=== PATIENT | female | born 1985 | race Caucasian/White ===

== ENCOUNTER → 2020-05-11 | Outpatient (CLI) | payer SELFPAY ==
--- NOTE | 2020-05-11 13:03 | XR ---
EXAMINATION TYPE: XR abdomen 2V DATE OF EXAM: 05/11/2020 COMPARISON: NONE HISTORY: Abdominal pain TECHNIQUE: One view abdominal series FINDINGS: The osseous structures are intact. The bowel gas pattern is nonspecific. Lung bases are clear. Arth ropathy of the hips with severe changes seen on the left. IMPRESSION: 1. Nonspecific abdomen.
== END | disposition home or self-care (01) ==
LOC: RADXRMAIN 12:40
PROVIDERS: ATTEND Family Medicine
DX: R10.9 Unspecified abdominal pain (principal); R19.4 Change in bowel habit
CPT/HCPCS: 74019

== ENCOUNTER → 2021-09-28 | Outpatient (CLI) | payer BC ==
[2021-09-28 15:26] VITALS: BP 155/94; PULSE 102; RESP 16; TEMP 97.8; BMI 53.7
--- NOTE | 2021-09-28 15:45 | P.HPBAR ---
Bariatric H&P - History & Physicial H&P Date: 09/28/21 History & Physicial: Visit/CC: Initial Visit Patient initial contact: Initial weight: 153.314 kg Initial weight in pounds: 338.00 Height: 5 ft 6.5 in Initial BMI: 53.7 Last weight: Current weight: 153.314 kg Current weight in pounds: 338.00 Current BMI: 53.7 [place] body weight (based on NIH guidelines): 60.101 kg Excess body weight loss: 0.0% The patient is a 36 year-old F who presents for Bariatric Assessment. Patient demonstrates him in consultation for weight loss. She look into the sleeve versus the gastric bypass. She reports underlying gastroparesis and reflux disease. She reports lower back pain. She also reports she will need a hip replacement at 36. She reports right hip pain and right knee pain as well. She had lost over 60 pounds with [employer] in 2019 and has regained all her weight. She stopped smoking. She is involving medical supervised weight loss. She resumed weight watchers. Recommend upper endoscopy further assessment of reflux disease. She doesn't recall bladder. She denies any family history of gallbladder disease. No family history of DVT stomach cancer esophageal cancer. Past Medical History History of Any Multi-Drug Resistant Organisms: None Reported Smoking Status: Former smoker Surgical - Exam Vital Signs Temp Pulse Resp BP 97.8 F 102 H 16 155/94 09/28/21 15:21 09/28/21 15:21 09/28/21 15:21 09/28/21 15:21 Bariatric Checklist Checklist: Plan: Checklist: EGD: 1. Hiatal hernia: 2. H. Pylori: HgbA1c: Vitamin D: Smoking: Primary care physician referral: Torie Psychiatry clearance: Cardiology clearance: Sleep study: Diet journal: VTE risk score: VTE risk level: Rehab needs at discharge:
[2021-09-28 23:03] LABS: HCT 42.9 % (37.2-46.3); HGB 13.6 g/dL (12.0-15.0); MCH 27.1 pg (27.0-32.0); MCHC 31.7 g/dL (32.0-37.0); MCV 85.5 fL (80.0-97.0); NRBC Per 100 WBC 0 /100 WBCS (0.0-0.0); Platelet Count 211 X 10*3/uL (140-440); RBC 5.02 X 10*6/uL (4.10-5.20); RDW 13.8 % (11.5-14.5); WBC 10.33 X 10*3/uL (4.50-10.00)
[2021-09-28 23:19] LABS: Chol/HDL Ratio 3.11 Ratio; LDL Cholesterol,Calculated 97.6 mg/dL (0.0-131.0); Prealbumin 23.9 mg/dL (18.0-42.0)
[2021-09-28 23:46] LABS: INR 0.94 (0.90-1.11); Partial Thromboplastin Time 29.4 sec (23.5-31.0); Prothrombin Time 10.4 sec (9.9-11.9)
[2021-09-29 01:32] LABS: % Iron Saturation 14.83 (12.00-45.00); ALT 11 U/L (8-44); AST 13 U/L (13-35); African American GFR (CKD) 95.3 (60.0-200.0); Albumin 4.3 g/dL (3.8-4.9); Albumin/Globulin Ratio 1.34 (1.60-3.17); Alkaline Phosphatase 67 U/L (41-126); BUN/Creat Ratio 17.78 Ratio (12.00-20.00); Calcium 9.2 mg/dL (8.7-10.3); Chloride 100 mmol/L (96-109); Ferritin 87.8 ng/mL (10.0-291.0); Globulin 3.2 g/dL (1.6-3.3); Glucose 89 mg/dL (70-110); Iron 65 ug/dL (50-170); Magnesium 2.1 mg/dL (1.5-2.4); Non-African American GFR(CKD) 82.3 (60.0-200.0); Phosphorus 3.5 mg/dL (2.4-5.1); Sodium 137 mmol/L (135-145); Total Iron Binding Capacity 440 ug/dL (228-460); Total Protein 7.5 g/dL (6.2-8.2)
[2021-09-29 11:56] LABS: Zinc, Serum 48 ug/dL (60-130)
[2021-09-30 06:56] LABS: Vitamin A 67 ug/dL (38-106)
[2021-10-01 14:22] LABS: Selenium 123 mcg/L (63-160)
[2021-10-01 18:00] LABS: Anabasine Urine <2.0 ng/mL (<2.0)
== END | disposition home or self-care (01) ==
LOC: BARWHC3 15:04
PROVIDERS: ATTEND Surgery Plastic and Reconstructive Surgery
DX: E66.01 Morbid (severe) obesity due to excess calories (principal); D50.8 Other iron deficiency anemias; D50.9 Iron deficiency anemia, unspecified; K90.89 Other intestinal malabsorption; K90.9 Intestinal malabsorption, unspecified; E55.9 Vitamin D deficiency, unspecified; K74.1 Hepatic sclerosis; N19 Unspecified kidney failure; T56.894A Toxic effect of other metals, undetermined, initial encounter; K50.90 Crohn's disease, unspecified, without complications; Z71.51 Drug abuse counseling and surveillance of drug abuser; Z68.43 Body mass index [BMI] 50.0-59.9, adult
CPT/HCPCS: 84255; 84134; 84425; 80061; 80053; 82607; 82728; 82525; 82746; 83540; 83550; 83735; 84100; 84443; 84590; 84630; 85027; 85610; 85730; 82306; 83970; 83036; 80307; 99203; 93005; G0482; 80323

== ENCOUNTER 2021-10-24 09:17 | Day surgery (SDC) | payer BC ==
[2021-10-19 13:56] VITALS: BMI 56.2
--- NOTE | 2021-10-24 07:56 | P.GSHP ---
History of Present Illness H&P Date: 10/24/21 CHIEF COMPLAINT: GERD HISTORY OF PRESENT ILLNESS: The patient is a 36-year-old female who presents reports gastroesophageal reflux disease. Upper endoscopy was offered for further evaluation and management. PAST MEDICAL HISTORY: Please see list. PAST SURGICAL HISTORY: Please see list. MEDICATIONS: Please see list. ALLERGIES: Please see list. SOCIAL HISTORY: No illicit drug use FAMILY HISTORY: No reports of Crohn disease or ulcerative colitis. REVIEW OF ORGAN SYSTEMS: CONSTITUTIONAL: No reports of fevers or chills. GI: Denies any blood in stools or constipation. PHYSICAL EXAM: VITAL SIGNS: Stable GENERAL: Well-developed and pleasant in no acute distress. HEENT: No scleral icterus. Extraocular movements grossly intact. Moist buccal mucosa. NECK: Supple without lymphadenopathy. CHEST: Unlabored respirations. Equal bilateral excursions. CARDIOVASCULAR: Regular rate and rhythm. Distal 2+ pulses. ABDOMEN: Soft, nondistended. MUSCULOSKELETAL: No clubbing, cyanosis, or edema. ASSESSMENT: 1. Gastroesophageal reflux disease PLAN: 1. Recommend proceeding with an upper endoscopy Past Medical History Past Medical History: Osteoarthritis (OA), Sleep Apnea/CPAP/BIPAP Additional Past Medical History / Comment(s): bilateral hip osteoarthritis bilateral knee osteoarthritis History of Any Multi-Drug Resistant Organisms: None Reported Past Surgical History: Section Past Anesthesia/Blood Transfusion Reactions: No Reported Reaction Past Psychological History: Depression Smoking Status: Former smoker Past Alcohol Use History: None Reported Additional Past Alcohol Use History / Comment(s): HASN'T SMOKED SINCE 10/09/21 Past Drug Use History: None Reported Medications and Allergies Home Medications Medication Instructions Recorded Confirmed Type Desvenlafaxine Succinate [Pristiq] 50 mg PO HS 09/30/21 10/19/21 History lamoTRIgine [LaMICtal Xr] 50 mg PO HS 09/30/21 10/19/21 History Nf- Control 1 tab PO DAILY 10/19/21 10/19/21 History hydroCHLOROthiazide 25 mg PO DAILY 10/19/21 10/19/21 History Allergies Allergy/AdvReac Type Severity Reaction Status Date / Time No Known Allergies Allergy Verified 09/30/21 11:26
[~2021-10-24 09:17] MED LIST: LACTATED RINGERS 1,000 ML IV SCH; LIDOCAINE 1% (10MG/ML) FOR IV START INTRADERMA PRN
[2021-10-24 09:52] VITALS: TEMP 96.7
[2021-10-24] MEDS ORDERED: PROPOFOL 10 MG/ML 20 ML VIAL IV ONE (10:11)
[2021-10-24] MEDS ORDERED: LIDOCAINE 1% INJ 10MG/ML (20 ML MDV) ONE (10:11)
[2021-10-24 10:34] VITALS: RESP 16
--- NOTE | 2021-10-24 10:34 | P.PCN ---
Date of Procedure: 10/24/21 Description of Procedure: PREOPERATIVE DIAGNOSIS: Gastroesophageal reflux disease. Morbid obesity. POSTOPERATIVE DIAGNOSIS: Gastroesophageal reflux disease. Morbid obesity. Gastritis. Duodenitis OPERATION: Esophagogastroduodenoscopy with biopsies along antrum and duodenum SURGEON: Taya Sharp MD ANESTHESIA: MAC. INDICATIONS: The patient is a 36-year-old female who presents with reflux disease. Benefits and risks of the procedure were described. Informed consent was obtained. DESCRIPTION: The patient was brought into the endoscopy suite and laid in the left lateral decubitus position. An Olympus gastroscope was passed along the posterior oropharynx down to the distal esophagus where the squamocolumnar junction was encountered at 38 cm from the incisors. The stomach was entered and no bile reflux was found. Additional findings are listed below. Biopsies with cold forceps were obtained of the antrum. The first through third portion of the duodenum was examined. Retroflexion of the scope confirmed Hill grade 2 lower esophageal valve. The squamocolumnar junction demonstrated LA grade A erosive esophagitis. The stomach was desufflated. The patient tolerated the procedure well. FINDINGS: Squamocolumnar junction 38 cm from the incisors. Diaphragmatic hiatus at 38 cm. Hill grade 2 lower esophageal valve. LA grade A erosive esophagitis. Active duodenitis. Chronic gastritis RECOMMENDATIONS: Upper endoscopy as needed. Plan - Discharge Summary Discharge Rx Participant: No New Discharge Prescriptions: Continue lamoTRIgine [LaMICtal Xr] 50 mg PO HS hydroCHLOROthiazide 25 mg PO DAILY Nf- Control 1 tab PO DAILY Desvenlafaxine Succinate [Pristiq] 50 mg PO HS Discharge Medication List Desvenlafaxine Succinate [Pristiq] 50 mg PO HS 09/30/21 [History] lamoTRIgine [LaMICtal Xr] 50 mg PO HS 09/30/21 [History] Nf- Control 1 tab PO DAILY 10/19/21 [History] hydroCHLOROthiazide 25 mg PO DAILY 10/19/21 [History] Follow up [facility]ment(s[facility] [facility] [place] [place] [place] Patient Instructions/Handouts: Duodenitis (DC), Gastritis (DC), Diet for Stomach Ulcers and Gastritis (ED) Discharge Disposition: HOME SELF-CARE
[2021-10-24 10:55] VITALS: BP 114/74; PULSE 92
== END 2021-10-24 10:58 | disposition home or self-care (01) ==
LOC: ORWHC2ENDO 09:17
PROVIDERS: ATTEND Surgery Plastic and Reconstructive Surgery
DX: K31.A0 Gastric intestinal metaplasia, unspecified (principal); K31.9 Disease of stomach and duodenum, unspecified; K21.9 Gastro-esophageal reflux disease without esophagitis; R59.9 Enlarged lymph nodes, unspecified; M19.90 Unspecified osteoarthritis, unspecified site; F32.A Depression, unspecified; I10 Essential (primary) hypertension; Z87.891 Personal history of nicotine dependence; M16.0 Bilateral primary osteoarthritis of hip; M17.0 Bilateral primary osteoarthritis of knee; Z79.899 Other long term (current) drug therapy; G47.33 Obstructive sleep apnea (adult) (pediatric); Z98.891 History of uterine scar from previous surgery
CPT/HCPCS: 81025; 88305; 43239; J2001; J2704

== ENCOUNTER → 2021-11-14 | Outpatient (CLI) | payer BC ==
[2021-11-14 12:39] VITALS: BMI 55.2
[2021-11-17 07:10] LABS: Anabasine Urine <2.0 ng/mL (<2.0)
== END | disposition home or self-care (01) ==
LOC: BARWHC3 08:51
PROVIDERS: ATTEND Surgery Plastic and Reconstructive Surgery
DX: E66.01 Morbid (severe) obesity due to excess calories (principal); Z71.3 Dietary counseling and surveillance; Z71.51 Drug abuse counseling and surveillance of drug abuser
CPT/HCPCS: 80323; 97804

== ENCOUNTER → 2021-12-12 | Outpatient (CLI) | payer BC | END | disposition home or self-care (01) | LOC: LABPAT 10:05 | PROVIDERS: ATTEND Surgery Plastic and Reconstructive Surgery | DX: Z53.9 Procedure and treatment not carried out, unspecified reason (principal) ==

== ENCOUNTER → 2021-12-12 | Outpatient (CLI) | payer BC ==
[2021-12-12 11:19] LABS: Prothrombin Time 10.6 sec (9.0-12.0)
[2021-12-12 14:41] LABS: Basophils # (A) 0.06 X 10*3/uL (0.00-0.10); Basophils % (A) 0.7 %; Eosinophils # (A) 0.15 X 10*3/uL (0.04-0.35); Eosinophils % (A) 1.7 %; HCT 41.1 % (37.2-46.3); HGB 13.2 g/dL (12.0-15.0); Immature Grans, Automated 0.2 %; Lymphocytes # (A) 2.09 X 10*3/uL (0.90-5.00); MCH 26.4 pg (27.0-32.0); MCHC 32.1 g/dL (32.0-37.0); MCV 82.2 fL (80.0-97.0); Mean Platelet Volume 9.5 fL (9.5-12.2); Monocytes # (A) 0.63 X 10*3/uL (0.20-1.00); Monocytes % (A) 7.2 %; NRBC Per 100 WBC 0 /100 WBCS (0.0-0.0); Neutrophils # (A) 5.76 X 10*3/uL (1.80-7.70); Neutrophils % (A) 66.2 %; Platelet Count 159 X 10*3/uL (140-440); RDW 13.3 % (11.5-14.5); WBC 8.71 X 10*3/uL (4.50-10.00)
[2021-12-12 14:58] LABS: % Iron Saturation 18.97 (12.00-45.00); ALT 33 U/L (8-44); AST 33 U/L (13-35); African American GFR (CKD) 122.2 (60.0-200.0); Albumin 4.4 g/dL (3.8-4.9); Albumin/Globulin Ratio 1.42 (1.60-3.17); Alkaline Phosphatase 87 U/L (41-126); BUN/Creat Ratio 24.15 Ratio (12.00-20.00); Blood Urea Nitrogen 17.7 mg/dL (9.0-27.0); Calcium 9.3 mg/dL (8.7-10.3); Carbon Dioxide 23.2 mmol/L (20.0-27.5); Chloride 102 mmol/L (96-109); Globulin 3.1 g/dL (1.6-3.3); Glucose 102 mg/dL (70-110); Iron 69 ug/dL (50-170); Magnesium 2.1 mg/dL (1.5-2.4); Non-African American GFR(CKD) 105.4 (60.0-200.0); Phosphorus 3.7 mg/dL (2.4-5.1); Sodium 137 mmol/L (135-145); Total Iron Binding Capacity 363 ug/dL (228-460); Total Protein 7.4 g/dL (6.2-8.2)
[2021-12-12 15:26] LABS: Chol/HDL Ratio 4.03 Ratio; LDL Cholesterol,Calculated 111.8 mg/dL (0.0-131.0); Prealbumin 20.2 mg/dL (18.0-42.0)
[2021-12-13 12:38] LABS: Zinc, Serum 72 ug/dL (60-130)
[2021-12-14 09:31] LABS: Vitamin A 42 ug/dL (38-106)
== END | disposition home or self-care (01) ==
LOC: LABWHC1 09:25
PROVIDERS: ATTEND Surgery Plastic and Reconstructive Surgery
DX: E89.1 Postprocedural hypoinsulinemia (principal); D50.8 Other iron deficiency anemias; K90.89 Other intestinal malabsorption; E55.9 Vitamin D deficiency, unspecified; K74.1 Hepatic sclerosis; N19 Unspecified kidney failure; T56.894A Toxic effect of other metals, undetermined, initial encounter; K50.90 Crohn's disease, unspecified, without complications
CPT/HCPCS: 36415; 80053; 80061; 82306; 82525; 82607; 82728; 82746; 83036; 83540; 83550; 83735; 83970; 84100; 84134; 84255; 84425; 84443; 84590; 84630; 85025; 85610; 85730

== ENCOUNTER → 2021-12-29 | Outpatient (CLI) | payer BC ==
[~2021-12-29] MED LIST changes: -LACTATED RINGERS 1,000 ML IV SCH; -LIDOCAINE 1% (10MG/ML) FOR IV START INTRADERMA PRN; +SODIUM CHLORIDE 0.9% 2,000 ML IV NR; +SODIUM CHLORIDE 0.9% 500 ML 500 ML in EMPTY BAG 1 BAG IV PRN
== END | disposition home or self-care (01) ==
LOC: PROCWHC3 15:51
PROVIDERS: ATTEND Surgery Plastic and Reconstructive Surgery
DX: E86.0 Dehydration (principal)
CPT/HCPCS: 96360; 96361

== ENCOUNTER → 2022-01-11 | Outpatient (CLI) | payer BC ==
[2022-01-11] MEDS: SODIUM CHLORIDE 0.9% 1,000 ML IV SCH ×2 (14:25→15:25)
[2022-01-11 14:27] VITALS: RESP 16; BMI 49.4
[2022-01-11 14:41] VITALS: BP 107/75; PULSE 85; TEMP 97.8
--- NOTE | 2022-01-11 16:17 | P.BASOAP ---
Subjective Progress Note Date: 01/11/22 She had GERD from not taking medications of omeprazole. She had large BM. She is getting fluids. She can tolerate egss, scrambled and did crab meat. She forgot her Omeprazole. She is getting fluids. Recommend EGD if dysphagia. She had dumping syndrome with sugar beverage. Objective - Vital Signs Vital signs: Vital Signs Temp 97.8 F 01/11/22 14:34 Pulse 85 01/11/22 14:34 Resp 16 01/11/22 14:34 BP 107/75 01/11/22 14:34 Pulse Ox 97 01/11/22 14:34 FiO2 Intake & Output 01/10/22 01/11/22 01/11/22 18:59 06:59 18:59 Weight 141.067 kg Assessment/Plan Plan: Date: 01/11/22 Initial Weight: 153.314 kg Initial BMI: 53.7 Current Weight: 141.067 kg Current BMI: 49.4 Type of Surgery: Cha-en-Y Gastric Bypass Total Volume in Band: Previous Volume: Volume Removed: Volume Added: Band Size:
== END | disposition home or self-care (01) ==
LOC: BARWHC3 13:48
PROVIDERS: ATTEND Surgery Plastic and Reconstructive Surgery
DX: E86.0 Dehydration (principal)
CPT/HCPCS: 96360; 96361; 99211

== ENCOUNTER → 2022-01-16 | Outpatient (CLI) | payer BC ==
[2022-01-16] MEDS: SODIUM CHLORIDE 0.9% 1,000 ML IV SCH ×2 (12:40→13:43)
[2022-01-16 12:58] VITALS: BP 133/94; PULSE 99; RESP 16; TEMP 98.3
--- NOTE | 2022-01-16 14:00 | P.PN ---
Subjective Progress Note Date: 01/16/22 Patient seen and evaluated. Reports new left lower quadrant abdominal pain. She is 3 weeks out from status post gastric bypass. She reports intractable nausea and vomiting. Unable to tolerate liquids. Recommend esophagram. Due to new onset left lower quadrant abdominal pain risk for intra-abdominal infection present. She denies fevers. Recommend CT of the abdomen and pelvis. May need upper endoscopy with dilation pending results of esophagram. Recommend IV fluids for inadequate oral intake of fluids Objective - Vital Signs Vital signs: Vital Signs Temp 98.3 F 01/16/22 12:47 Pulse 99 01/16/22 12:47 Resp 16 01/16/22 12:47 BP 133/94 01/16/22 12:47 Pulse Ox FiO2 Intake & Output 01/15/22 01/16/22 01/16/22 18:59 06:59 18:59 Weight 138.346 kg
== END | disposition home or self-care (01) ==
LOC: PROCWHC3 12:35
PROVIDERS: ATTEND Surgery Plastic and Reconstructive Surgery
DX: R13.10 Dysphagia, unspecified (principal); E86.0 Dehydration
CPT/HCPCS: 96360; 96361

== ENCOUNTER → 2022-01-16 | Outpatient (CLI) | payer BC ==
--- NOTE | 2022-01-16 17:10 | CT ---
EXAMINATION TYPE: CT abdomen pelvis w con DATE OF EXAM: 01/16/2022 COMPARISON: CT dated 12/23/2021 HISTORY: LLQ pain since gastric bypass CT DLP: 3656.2 mGycm Automated exposure control for dose reduction was used. TECHNIQUE: Helical acquisition of images was performed from the lung bases through the pelvis. CONTRAST: Performed with Oral Contrast and with IV Contrast, patient injected with 80 mL of Isovue 300. FINDINGS: LUNG BASES: No significant abnormality is appreciated. LIVER/GB: No significant abnormality is appreciated. PANCREAS: No significant abnormality is seen. SPLEEN: Increased axial diameter of the spleen measuring up to 14.4 cm. ADRENALS: No significant abnormality is seen. KIDNEYS: Grossly unremarkable kidneys. FREE AIR: No free air is visualized. RETROPERITONEAL ADENOPATHY: None visualized REPRODUCTIVE ORGANS: No gross uterine or adnexal mass. URINARY BLADDER: No significant abnormality is seen. PELVIC ADENOPATHY: No pathologically enlarged pelvic lymph nodes. OSSEOUS STRUCTURES: No gross aggressive bone lesion. BOWEL: Previous gastric bypass surgery with gastrojejunostomy. Small bowel anastomosis in the left s josé miguel of the abdomen. No evidence of bowel obstruction. Scattered uncomplicated colonic diverticulosis. Normal appendix. OTHER: Arterial abdominal wall areas of fat stranding and mild soft tissue thickening mainly on the l eft side, possibly representing postoperative changes. Underlying acute inflammatory/infectious proce ss cannot be excluded. No soft tissue gas. Unremarkable abdominal aorta and IVC. No sizable ascites. IMPRESSION: The described anterior abdominal wall changes could be related to chronic postoperative changes howev er acute inflammatory/infectious process cannot be excluded, please correlate clinically. No definite abscess formation or soft tissue gas. No other acute abnormality seen in the abdomen or the pelvis. Incidental findings as described above.
== END | disposition home or self-care (01) ==
LOC: RADCTMAIN 15:34
PROVIDERS: ATTEND Surgery Plastic and Reconstructive Surgery
DX: R10.32 Left lower quadrant pain (principal)
CPT/HCPCS: 74177; Q9967

== ENCOUNTER 2022-01-18 09:51 | Day surgery (SDC) | payer BC ==
[2022-01-17 14:20] VITALS: BMI 50.7
--- NOTE | 2022-01-18 06:33 | P.GSHP ---
History of Present Illness H&P Date: 01/18/22 CHIEF COMPLAINT: GERD HISTORY OF PRESENT ILLNESS: The patient is a 36-year-old female who presents reports gastroesophageal reflux disease. Upper endoscopy was offered for further evaluation and management. PAST MEDICAL HISTORY: Please see list. PAST SURGICAL HISTORY: Please see list. MEDICATIONS: Please see list. ALLERGIES: Please see list. SOCIAL HISTORY: No illicit drug use FAMILY HISTORY: No reports of Crohn disease or ulcerative colitis. REVIEW OF ORGAN SYSTEMS: CONSTITUTIONAL: No reports of fevers or chills. GI: Denies any blood in stools or constipation. PHYSICAL EXAM: VITAL SIGNS: Stable GENERAL: Well-developed and pleasant in no acute distress. HEENT: No scleral icterus. Extraocular movements grossly intact. Moist buccal mucosa. NECK: Supple without lymphadenopathy. CHEST: Unlabored respirations. Equal bilateral excursions. CARDIOVASCULAR: Regular rate and rhythm. Distal 2+ pulses. ABDOMEN: Soft, nondistended. MUSCULOSKELETAL: No clubbing, cyanosis, or edema. ASSESSMENT: 1. Gastroesophageal reflux disease PLAN: 1. Recommend proceeding with an upper endoscopy Past Medical History Past Medical History: Osteoarthritis (OA) Additional Past Medical History / Comment(s): bilateral hip osteoarthritis bilateral knee osteoarthritis. c/o excess stomach acid, spitting it up mult times daily; pain Lt lower mid abd. History of Any Multi-Drug Resistant Organisms: None Reported Past Surgical History: Bariatric Surgery, Section Additional Past Surgical History / Comment(s): [place] teeth. EGD. Gastric bypass, Cha-en-Y 12/22/21 Past Anesthesia/Blood Transfusion Reactions: No Reported Reaction Smoking Status: Former smoker - Past Family History Mother Family Medical History: Cancer Additional Family Medical History / Comment(s): mycosis fungoids Medications and Allergies Home Medications Medication Instructions Recorded Confirmed Type Desvenlafaxine Succinate [Pristiq] 50 mg PO HS 09/30/21 01/17/22 History lamoTRIgine [LaMICtal Xr] 50 mg PO HS 09/30/21 01/17/22 History Omeprazole [PriLOSEC] 40 mg PO BID 01/17/22 01/17/22 History Allergies Allergy/AdvReac Type Severity Reaction Status Date / Time No Known Allergies Allergy Verified 01/17/22 14:05
[2022-01-18 10:32] VITALS: TEMP 97.4
[2022-01-18] MEDS ORDERED: LACTATED RINGERS 1,000 ML IV ONE (10:33)
[2022-01-18] MEDS ORDERED: FAMOTIDINE 20 MG/2 ML VIAL IVP ONE (10:51)
[2022-01-18] MEDS ORDERED: MIDAZOLAM 2 MG/2 ML VIAL ONE (11:36)
[2022-01-18] MEDS ORDERED: PROPOFOL 10 MG/ML 20 ML VIAL IV ONE (11:36)
[2022-01-18] MEDS ORDERED: LIDOCAINE 2% INJ 20 MG/ML (2 ML VIAL) ONE (11:36)
[2022-01-18] MEDS ORDERED: KETAMINE 10 MG/ML 20 ML VIAL ONE (11:36)
[2022-01-18 12:05] VITALS: RESP 16
--- NOTE | 2022-01-18 12:19 | P.PCN ---
Date of Procedure: 01/18/22 Description of Procedure: PREOPERATIVE DIAGNOSIS: Dysphagia. s/p Cha-en-y gastric bypass. Nausea with vomiting. Morbid obesity. POSTOPERATIVE DIAGNOSIS: Dysphagia. s/p Cha-en-y gastric bypass. Nausea with vomiting. Morbid obesity. 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 INDICATIONS: The patient is a 36-year-old female who presents with a history of dysphagia, gastric bypass including new-onset nausea and vomiting. Benefits and risks of the procedure were described. Informed consent was obtained. DESCRIPTION: The patient was brought into the endoscopy suite and laid in the left lateral decubitus position. After a timeout was confirmed, the procedure was initiated. An Olympus gastroscope was passed along the posterior oropharynx down to the distal esophagus where the squamocolumnar junction was unremarkable. The gastric pouch was entered. A gastrojejunal stricture of 2 mm was found as the adult gastroscope was 9.5 mm in size. Dissolved pill was found completely obstructing the stomach. A [place] balloon dilator was placed through the scope. Final insufflation up to 9 mm was performed with a total of 2 minutes. The mucosa of the gastrojejunal anastomosis was intact. No full-thickness injury was encountered. The GI tract was desufflated. The patient tolerated the procedure well. FINDINGS: Squamocolumnar junction unremarkable at 37 cm. Moderate retained fluid within the esophagus suction Stricture of approximately 2 mm encountered. Chronic gastrojejunal ulceration encountered. Successful balloon dilatation to 9 mm. Gastric pouch 3 cm. RECOMMENDATIONS: Repeat upper endoscopy in 3-4 weeks for dilation Plan - Discharge Summary Discharge Rx Participant: No New Discharge Prescriptions: Continue lamoTRIgine [LaMICtal Xr] 50 mg PO HS Desvenlafaxine Succinate [Pristiq] 50 mg PO HS Omeprazole [PriLOSEC] 40 mg PO BID Discharge Medication List Desvenlafaxine Succinate [Pristiq] 50 mg PO HS 09/30/21 [History] lamoTRIgine [LaMICtal Xr] 50 mg PO HS 09/30/21 [History] Omeprazole [PriLOSEC] 40 mg PO BID 01/17/22 [History] Follow up Appointment(s)/Referral(s): [facility] [NON-STAFF] - 01/18/22 (Go to bariatric center after this for this afternoon) Patient Instructions/Handouts: Esophageal Dilation (DC), Complete Blenderized Diet (DC) Activity/Diet/Wound Care/Special Instructions: Please crush or open all medications. Discharge Disposition: HOME SELF-CARE
[2022-01-18 12:47] VITALS: BP 135/87; PULSE 87
== END 2022-01-18 12:48 | disposition home or self-care (01) ==
LOC: ORWHC2ENDO 09:51
PROVIDERS: ATTEND Surgery Plastic and Reconstructive Surgery
DX: K95.89 Other complications of other bariatric procedure (principal); R13.10 Dysphagia, unspecified; K21.9 Gastro-esophageal reflux disease without esophagitis; R11.2 Nausea with vomiting, unspecified; Z98.0 Intestinal bypass and anastomosis status; Z98.84 Bariatric surgery status; M16.0 Bilateral primary osteoarthritis of hip; M17.0 Bilateral primary osteoarthritis of knee; E66.01 Morbid (severe) obesity due to excess calories; F32.A Depression, unspecified; Z68.43 Body mass index [BMI] 50.0-59.9, adult; Z87.891 Personal history of nicotine dependence; Z79.899 Other long term (current) drug therapy; Z98.891 History of uterine scar from previous surgery; Z80.7 Family history of other malignant neoplasms of lymphoid, hematopoietic and related tissues
CPT/HCPCS: 81025; 43245; J2250; J2704; J2001; C1726

== ENCOUNTER 2022-02-08 10:15 | Day surgery (SDC) | payer BC ==
[2022-02-03 09:49] VITALS: BMI 49.6
--- NOTE | 2022-02-08 06:01 | P.GSHP ---
History of Present Illness H&P Date: 02/08/22 CHIEF COMPLAINT: GERD HISTORY OF PRESENT ILLNESS: The patient is a 36-year-old female who presents reports gastroesophageal reflux disease. Upper endoscopy was offered for further evaluation and management. PAST MEDICAL HISTORY: Please see list. PAST SURGICAL HISTORY: Please see list. MEDICATIONS: Please see list. ALLERGIES: Please see list. SOCIAL HISTORY: No illicit drug use FAMILY HISTORY: No reports of Crohn disease or ulcerative colitis. REVIEW OF ORGAN SYSTEMS: CONSTITUTIONAL: No reports of fevers or chills. GI: Denies any blood in stools or constipation. PHYSICAL EXAM: VITAL SIGNS: Stable GENERAL: Well-developed and pleasant in no acute distress. HEENT: No scleral icterus. Extraocular movements grossly intact. Moist buccal mucosa. NECK: Supple without lymphadenopathy. CHEST: Unlabored respirations. Equal bilateral excursions. CARDIOVASCULAR: Regular rate and rhythm. Distal 2+ pulses. ABDOMEN: Soft, nondistended. MUSCULOSKELETAL: No clubbing, cyanosis, or edema. ASSESSMENT: 1. Gastroesophageal reflux disease PLAN: 1. Recommend proceeding with an upper endoscopy Past Medical History Past Medical History: Osteoarthritis (OA) Additional Past Medical History / Comment(s): bilateral hip osteoarthritis bilateral knee osteoarthritis. c/o excess stomach acid, spitting it up mult times daily; pain Lt lower mid abd. ESOPHAGEAL STRICTURES History of Any Multi-Drug Resistant Organisms: None Reported Past Surgical History: Bariatric Surgery, Section Additional Past Surgical History / Comment(s): [place] teeth. EGD. Gastric bypass, Cha-en-Y 12/22/21, EGD WITH DILATATION Past Anesthesia/Blood Transfusion Reactions: No Reported Reaction Smoking Status: Former smoker - Past Family History Mother Family Medical History: Cancer Additional Family Medical History / Comment(s): mycosis fungoids Medications and Allergies Home Medications Medication Instructions Recorded Confirmed Type lamoTRIgine [LaMICtal Xr] 50 mg PO HS 09/30/21 02/03/22 History Omeprazole [PriLOSEC] 40 mg PO BID #60 cap 01/18/22 02/03/22 Rx Allergies Allergy/AdvReac Type Severity Reaction Status Date / Time No Known Allergies Allergy Verified 02/03/22 09:42
[~2022-02-08 10:15] MED LIST changes: +LACTATED RINGERS 1,000 ML IV SCH; -SODIUM CHLORIDE 0.9% 2,000 ML IV NR; -SODIUM CHLORIDE 0.9% 500 ML 500 ML in EMPTY BAG 1 BAG IV PRN
[2022-02-08 10:38] VITALS: TEMP 97.8
[2022-02-08] MEDS ORDERED: LACTATED RINGERS 1,000 ML IV ONE (10:38)
[2022-02-08] MEDS ORDERED: LIDOCAINE 2% INJ 20 MG/ML (2 ML VIAL) ONE (10:49)
[2022-02-08] MEDS ORDERED: PROPOFOL 10 MG/ML 20 ML VIAL IV ONE (10:49)
[2022-02-08 11:10] VITALS: RESP 16
--- NOTE | 2022-02-08 11:15 | P.PCN ---
Date of Procedure: 02/08/22 Description of Procedure: PREOPERATIVE DIAGNOSIS: Dysphagia. Gastrojejunal stricture POSTOPERATIVE DIAGNOSIS: Dysphagia. 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 INDICATIONS: The patient is a 36-year-old female who presents with a history of dysphagia due to gastrojejunal stricture. Benefits and risks of the procedure were described. Informed consent was obtained. DESCRIPTION: The patient was brought into the endoscopy suite and laid in the left lateral decubitus position. After a timeout was confirmed, the procedure was initiated. An Olympus gastroscope was passed along the posterior oropharynx down to the distal esophagus where the squamocolumnar junction was unremarkable. The gastric pouch was entered. A gastrojejunal stricture of 2 mm was found as the adult gastroscope was 9.5 mm in size. Dissolved pill was found completely obstructing the stomach. A [employer] balloon dilator was placed through the scope. Final insufflation up to 10 mm was performed with a total of 2 minutes. The mucosa of the gastrojejunal anastomosis was intact. No full-thickness injury was encountered. The scope could not pass the anastomosis. The GI tract was desufflated. The patient tolerated the procedure well. FINDINGS: Stricture of approximately 2 mm encountered. Successful balloon dilatation to 10 mm. Gastric pouch 3 cm. RECOMMENDATIONS: Repeat upper endoscopy in 3-4 weeks for dilation Plan - Discharge Summary Discharge Rx Participant: No New Discharge Prescriptions: New Sucralfate [Carafate] 1 gm PO BID #60 tablet Continue lamoTRIgine [LaMICtal Xr] 50 mg PO HS Omeprazole [PriLOSEC] 40 mg PO BID #60 cap Discharge Medication List lamoTRIgine [LaMICtal Xr] 50 mg PO HS 09/30/21 [History] Omeprazole [PriLOSEC] 40 mg PO BID #60 cap 01/18/22 [Rx] Sucralfate [Carafate] 1 gm PO BID #60 tablet 02/08/22 [Rx] Follow up Appointment(s)/[place] [facility] [place] - As Needed Patient Instructions/Handouts: Esophageal Dilation (DC) Activity/Diet/Wound Care/Special Instructions: Continuous for a diet. Please crush or dissolve Sulcrafate/carafate twice daily. Discharge Disposition: HOME SELF-CARE
[2022-02-08 11:24] VITALS: BP 118/81; PULSE 84
== END 2022-02-08 11:44 | disposition home or self-care (01) ==
LOC: ORWHC2ENDO 10:15
PROVIDERS: ATTEND Surgery Plastic and Reconstructive Surgery
DX: K95.89 Other complications of other bariatric procedure (principal); R13.10 Dysphagia, unspecified; F32.A Depression, unspecified; M16.0 Bilateral primary osteoarthritis of hip; M17.0 Bilateral primary osteoarthritis of knee; Z98.891 History of uterine scar from previous surgery; Z98.890 Other specified postprocedural states; Z87.891 Personal history of nicotine dependence; Z80.8 Family history of malignant neoplasm of other organs or systems; Z79.899 Other long term (current) drug therapy
CPT/HCPCS: 81025; 43249; J2704; J2001; C1726

== ENCOUNTER 2022-02-15 15:38 | Observation (INO) | payer BC ==
[2022-02-15] MEDS ORDERED: NALOXONE 0.4 MG/ML 1 ML VIAL IV PRN (16:07)
[2022-02-15] MEDS ORDERED: HYDROmorphone 0.5 MG/0.5 ML SYRINGE IVP PRN (16:07)
[2022-02-15] MEDS ORDERED: ONDANSETRON 4 MG/2 ML VIAL IVP PRN (16:08)
[2022-02-15] MEDS ORDERED: PANTOPRAZOLE 40 MG/10 ML VIAL IVP STA (16:08)
--- NOTE | 2022-02-15 16:12 | ED ---
General Adult HPI - General Chief complaint: ENT Stated complaint: Esophageal stricture Time Seen by Provider: 02/15/22 15:40 Source: patient, RN notes reviewed, old records reviewed Mode of arrival: ambulatory Limitations: no limitations - History of Present Illness Initial comments: 36-year-old female history of previous bariatric surgery and recurrent esophageal stricture presents with inability to swallow both liquids and solids. She had an esophageal dilatation performed [address] Sharp. She was sent in by Dr. Sharp for admission and procedure performed tomorrow. She has not been able to eat or drink anything. She's had decreased urine output. She has no abdominal pain. No fever. - Related Data Home Medications Medication Instructions Recorded Confirmed lamoTRIgine [LaMICtal Xr] 50 mg PO HS 09/30/21 02/15/22 FLUoxetine HCL [PROzac] 20 mg PO DAILY 02/15/22 02/15/22 Previous Rx's Medication Instructions Recorded Omeprazole [PriLOSEC] 40 mg PO BID #60 cap 01/18/22 Sucralfate [Carafate] 1 gm PO BID #60 tablet 02/08/22 Allergies Allergy/AdvReac Type Severity Reaction Status Date / Time No Known Allergies Allergy Verified 02/15/22 16:04 Review of Systems ROS Statement: Those systems with pertinent positive or pertinent negative responses have been documented in the HPI. ROS Other: All systems not noted in ROS Statement are negative. Past Medical History Past Medical History: Osteoarthritis (OA) Additional Past Medical History / Comment(s): bilateral hip osteoarthritis bilateral knee osteoarthritis. c/o excess stomach acid, spitting it up mult times daily; pain Lt lower mid abd. History of Any Multi-Drug Resistant Organisms: None Reported Past Surgical History: Bariatric Surgery, Section Additional Past Surgical History / Comment(s): [place] teeth. EGD. Gastric bypass, Cha-en-Y 12/22/21 Past Anesthesia/Blood Transfusion Reactions: No Reported Reaction Past Psychological History: Depression Smoking Status: Former smoker Past Alcohol Use History: None Reported Past Drug Use History: Marijuana - Past Family History Mother Family Medical History: Cancer Additional Family Medical History / Comment(s): mycosis fungoids General Exam Limitations: no limitations General appearance: alert, in no apparent distress Head exam: Present: atraumatic, normocephalic Eye exam: Present: normal appearance, PERRL ENT exam: Present: mucous membranes dry Neck exam: Present: normal inspection Respiratory exam: Present: normal lung sounds bilaterally. Absent: respiratory distress Cardiovascular Exam: Present: regular rate, normal rhythm GI/Abdominal exam: Present: soft. Absent: distended, tenderness, guarding, rebound Extremities exam: Present: normal inspection, normal capillary refill Neurological exam: Present: alert, oriented X3, CN II-XII intact, normal gait. Absent: motor sensory deficit Psychiatric exam: Present: normal affect, normal mood Skin exam: Present: warm, dry, intact Course Vital Signs 02/15/22 16:03 Temperature 98.6 F Pulse Rate 85 Respiratory 16 Rate Blood Pressure 120/85 O2 Sat by Pulse 99 Oximetry Medical Decision Making - Medical Decision Making Patient with esophageal stricture presenting for admission for endoscopy tomorrow. There is a significant wait time and the ERs fall at this time. I did write orders including admission orders on this patient. When a room is available IV will be established, basic laboratory testing will be performed and the patient will ultimately be admitted. Dr. Sharp is aware of patient. Disposition Clinical Impression: Esophageal stricture, Dehydration Disposition: ADMITTED IP TO THIS HOSP Condition: Stable Is patient prescribed a controlled substance at d/c from ED?: No Referrals: Stephan Mcclain DO [Primary Care Provider] - 1-2 days Time of Disposition: 16:12
[2022-02-15] MEDS: SODIUM CHLORIDE 0.9% 1,000 ML IV SCH (18:16)
[2022-02-15 18:26] LABS: Basophils # (A) 0.1 k/uL (0-0.2); Basophils % (A) 1 %; Eosinophils # (A) 0.1 k/uL (0-0.7); Eosinophils % (A) 2 %; HCT 39.1 % (34.0-46.0); HGB 12.6 gm/dL (11.4-16.0); Lymphocytes # (A) 1.5 k/uL (1.0-4.8); Lymphocytes % (A) 24 %; MCH 26.6 pg (25.0-35.0); MCHC 32.3 g/dL (31.0-37.0); MCV 82.3 fL (80.0-100.0); Mean Platelet Volume 7.5; Monocytes # (A) 0.3 k/uL (0-1.0); Monocytes % (A) 5 %; Neutrophils # (A) 4.2 k/uL (1.3-7.7); Neutrophils % (A) 68 %; Platelet Count 136 k/uL (150-450); RBC 4.75 m/uL (3.80-5.40); RDW 15.1 % (11.5-15.5); WBC 6.3 k/uL (3.8-10.6)
[2022-02-15 18:34] LABS: ALT 19 U/L (4-34); AST 24 U/L (14-36); African American GFR (CKD) >90 (>60 ml/min/1.73 sqM); Alkaline Phosphatase 84 U/L (38-126); Anion Gap 6 mmol/L; Blood Urea Nitrogen 4 mg/dL (7-17); Carbon Dioxide 27 mmol/L (22-30); Chloride 105 mmol/L (98-107); Glucose 85 mg/dL (74-99); Non-African American GFR(CKD) >90 (>60 ml/min/1.73 sqM); Sodium 138 mmol/L (137-145); Total Bilirubin 0.6 mg/dL (0.2-1.3); Total Protein 6.6 g/dL (6.3-8.2)
[2022-02-15] MEDS ORDERED: SODIUM CHLORIDE 0.9% 2,000 ML IV ONE (18:52)
--- NOTE | 2022-02-15 18:56 | P.GSHP ---
History of Present Illness H&P Date: 02/15/22 Patient suffered from bariatric center due to esophageal obstruction including severe dehydration. Patient reports oliguria with dark urine. She reports increased cough including severe gastroesophageal reflux disease. She has pre- existing history of complete gastric obstruction. IV fluid hydration 2 L normal saline advised with upper endoscopy with dilation of gastric esophageal obstruction. Past Medical History Past Medical History: Osteoarthritis (OA) Additional Past Medical History / Comment(s): bilateral hip osteoarthritis bilateral knee osteoarthritis. c/o excess stomach acid, spitting it up mult times daily; pain Lt lower mid abd. History of Any Multi-Drug Resistant Organisms: None Reported Past Surgical History: Bariatric Surgery, Section Additional Past Surgical History / Comment(s): [place] teeth. EGD. Gastric bypass, Cha-en-Y 12/22/21 Past Anesthesia/Blood Transfusion Reactions: No Reported Reaction Past Psychological History: Depression Smoking Status: Former smoker Past Alcohol Use History: None Reported Past Drug Use History: Marijuana - Past Family History Mother Family Medical History: Cancer Additional Family Medical History / Comment(s): mycosis fungoids Medications and Allergies Home Medications Medication Instructions Recorded Confirmed Type Omeprazole [PriLOSEC] 40 mg PO BID #60 cap 01/18/22 02/15/22 Rx Sucralfate [Carafate] 1 gm PO BID #60 tablet 02/08/22 02/15/22 Rx FLUoxetine HCL [Sarafem] 20 mg PO DAILY 02/15/22 02/15/22 History lamoTRIgine [LaMICtal] 25 mg PO BID 02/15/22 02/15/22 History Allergies Allergy/AdvReac Type Severity Reaction Status Date / Time No Known Allergies Allergy Verified 02/15/22 18:03 Surgical - Exam Vital Signs Temp Pulse Resp BP Pulse Ox 98.6 F 85 16 120/85 99 02/15/22 16:03 02/15/22 16:03 02/15/22 16:03 02/15/22 16:03 02/15/22 16:03 Results - Labs 02/15/22 18:21 02/15/22 18:21 Abnormal Lab Results - Last 24 Hours (Table) 02/15/22 02/15/22 Range/Units 18:21 18:21 Plt Count 136 L (150-450) k/uL BUN 4 L (7-17) mg/dL Diabetes panel 02/15/22 Range/Units 18:21 Sodium 138 (137-145) mmol/L Potassium 4.0 (3.5-5.1) mmol/L Chloride 105 (98-107) mmol/L Carbon Dioxide 27 (22-30) mmol/L BUN 4 L (7-17) mg/dL Creatinine 0.60 (0.52-1.04) mg/dL Glucose 85 (74-99) mg/dL Calcium 9.0 (8.4-10.2) mg/dL AST 24 (14-36) U/L ALT 19 (4-34) U/L Alkaline Phosphatase 84 (38-126) U/L Total Protein 6.6 (6.3-8.2) g/dL Albumin 4.0 (3.5-5.0) g/dL Calcium panel 02/15/22 Range/Units 18:21 Calcium 9.0 (8.4-10.2) mg/dL Albumin 4.0 (3.5-5.0) g/dL Pituitary panel 02/15/22 Range/Units 18:21 Sodium 138 (137-145) mmol/L Potassium 4.0 (3.5-5.1) mmol/L Chloride 105 (98-107) mmol/L Carbon Dioxide 27 (22-30) mmol/L BUN 4 L (7-17) mg/dL Creatinine 0.60 (0.52-1.04) mg/dL Glucose 85 (74-99) mg/dL Calcium 9.0 (8.4-10.2) mg/dL Adrenal panel 02/15/22 Range/Units 18:21 Sodium 138 (137-145) mmol/L Potassium 4.0 (3.5-5.1) mmol/L Chloride 105 (98-107) mmol/L Carbon Dioxide 27 (22-30) mmol/L BUN 4 L (7-17) mg/dL Creatinine 0.60 (0.52-1.04) mg/dL Glucose 85 (74-99) mg/dL Calcium 9.0 (8.4-10.2) mg/dL Total Bilirubin 0.6 (0.2-1.3) mg/dL AST 24 (14-36) U/L ALT 19 (4-34) U/L Alkaline Phosphatase 84 (38-126) U/L Total Protein 6.6 (6.3-8.2) g/dL Albumin 4.0 (3.5-5.0) g/dL
[2022-02-15] MEDS: PANTOPRAZOLE 40 MG/10 ML VIAL IV SCH (21:31)
[2022-02-15] MEDS: lamoTRIgine 25 MG TAB PO SCH (21:31)
[2022-02-16 03:05] VITALS: RESP 15
[2022-02-16] MEDS: SODIUM CHLORIDE 0.9% 1,000 ML IV SCH ×2 (06:09→07:09)
[2022-02-16 08:04] VITALS: BP 114/74; PULSE 70; TEMP 98
--- NOTE | 2022-02-16 08:11 | P.HPADDEND ---
H&P Addendum H&P Addendum Date: 02/16/22 Patient presents with esophageal obstruction. Upper endoscopy described.
[2022-02-16 09:16] LABS: African American GFR (CKD) 135.9 (60.0-200.0); Anion Gap 15.6 mmol/L (10.00-18.00); BUN/Creat Ratio 6.33 Ratio (12.00-20.00); Blood Urea Nitrogen 3.8 mg/dL (9.0-27.0); Carbon Dioxide 19.4 mmol/L (20.0-27.5); Magnesium 1.7 mg/dL (1.5-2.4); Non-African American GFR(CKD) 117.3 (60.0-200.0); Potassium 3.3 mmol/L (3.5-5.5)
[2022-02-16 10:27] LABS: Basophils # (A) 0.03 X 10*3/uL (0.00-0.10); Basophils % (A) 0.6 %; Eosinophils # (A) 0.12 X 10*3/uL (0.04-0.35); Eosinophils % (A) 2.5 %; HCT 33.9 % (37.2-46.3); HGB 10.6 g/dL (12.0-15.0); Immature Grans, Automated 0.2 %; Lymphocytes # (A) 1.63 X 10*3/uL (0.90-5.00); Lymphocytes % (A) 34.4 %; MCH 26.2 pg (27.0-32.0); MCHC 31.3 g/dL (32.0-37.0); MCV 83.9 fL (80.0-97.0); Mean Platelet Volume 10.5 fL (9.5-12.2); Monocytes # (A) 0.35 X 10*3/uL (0.20-1.00); Monocytes % (A) 7.4 %; NRBC Per 100 WBC 0 /100 WBCS (0.0-0.0); Neutrophils % (A) 54.9 %; Platelet Count 110 X 10*3/uL (140-440); RBC 4.04 X 10*6/uL (4.10-5.20); RDW 15.2 % (11.5-14.5); WBC 4.74 X 10*3/uL (4.50-10.00)
[2022-02-16] MEDS ORDERED: IV FLUID CONTINUATION 1,000 ML IV ONE (10:55)
[2022-02-16] MEDS ORDERED: LIDOCAINE 2% INJ 20 MG/ML (2 ML VIAL) ONE (10:57)
[2022-02-16] MEDS ORDERED: PROPOFOL 10 MG/ML 20 ML VIAL IV ONE (10:57)
--- NOTE | 2022-02-16 11:22 | P.PCN ---
Date of Procedure: 02/16/22 Description of Procedure: PREOPERATIVE DIAGNOSIS: Dysphagia. Gastrojejunal stricture POSTOPERATIVE DIAGNOSIS: Dysphagia. Gastrojejunal stricture with obstruction without perforation OPERATION: Esophagogastrojejunoscopy with balloon dilatation from 8 to 12 mm, [employer] esophageal balloon SURGEON: Taya Sharp MD ANESTHESIA: MAC. INDICATIONS: The patient is a 36-year-old female who presents with a history of dysphagia due to gastrojejunal stricture. Benefits and risks of the procedure were described. Informed consent was obtained. DESCRIPTION: The patient was brought into the endoscopy suite and laid in the left lateral decubitus position. After a timeout was confirmed, the procedure was initiated. An Olympus gastroscope was passed along the posterior oropharynx down to the distal esophagus where the squamocolumnar junction was unremarkable. The gastric pouch was entered. A gastrojejunal stricture of 8 mm was found as the adult gastroscope was 9.5 mm in size. Dissolved pill was found completely obstructing the stomach. A [employer] balloon dilator was placed through the scope. Final insufflation up to 12 mm was performed with a total of 2 minutes. The mucosa of the gastrojejunal anastomosis was intact. No full-thickness injury was encountered. The scope could not pass the anastomosis. The GI tract was desufflated. The patient tolerated the procedure well. FINDINGS: Stricture of approximately 8 mm encountered. Successful balloon dilatation to 12 mm. Gastric pouch 3 cm. Gastrojejunal stenosis with resolving ulcer RECOMMENDATIONS: Repeat upper endoscopy in 2 weeks for dilation
[2022-02-16] MEDS ORDERED: POTASSIUM CHLORIDE 20 MEQ in WATER FOR INJECTION 1 100ML.BAG IVPB STA (11:25)
[2022-02-16] MEDS: PANTOPRAZOLE 40 MG/10 ML VIAL IV SCH (11:45)
[2022-02-16] MEDS: FLUoxetine HCL 20 MG CAP PO SCH ×2 (11:45→12:02)
[2022-02-16] MEDS: lamoTRIgine 25 MG TAB PO SCH (11:45)
[2022-02-16] MEDS: MAGNESIUM SULFATE-D5W PMX 1 GM in DEXTROSE/WATER 1 100ML.BAG IVPB SCH ×2 (11:46→14:52)
--- NOTE | 2022-02-16 14:37 | P.DS ---
Providers Date of admission: 02/15/22 16:08 Expected date of discharge: 02/16/22 Attending physician: Taya Sharp Primary care physician: Stephan Mcclain [facility] Course: Discharge diagnosis 1. Dysphagia. 2. 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 Hypokalemia 4. Hypomagnesemia Hospital course The patient is a 36-year-old female who presents with a history of dysphagia due to gastrojejunal stricture. Patient is status post EGD with balloon dilatation. Patient tolerated bariatric full liquid diet. Patient had her potassium and magnesium replaced prior to discharge. Patient is up and ambulating. She is afebrile. She denies any pain. She is stable for discharge. Physician Coater Operator note has been reviewed by physician. Signing provider agrees with the documented findings, assessment, and plan of care. Patient Condition at Discharge: Stable Plan - Discharge Summary New Discharge Prescriptions: Continue FLUoxetine HCL [Sarafem] 20 mg PO DAILY Omeprazole [PriLOSEC] 40 mg PO BID #60 cap Sucralfate [Carafate] 1 gm PO BID #60 tablet lamoTRIgine [LaMICtal] 25 mg PO BID Discharge Medication List Omeprazole [PriLOSEC] 40 mg PO BID #60 cap 01/18/22 [Rx] Sucralfate [Carafate] 1 gm PO BID #60 tablet 02/08/22 [Rx] FLUoxetine HCL [Sarafem] 20 mg PO DAILY 02/15/22 [History] lamoTRIgine [LaMICtal] 25 mg PO BID 02/15/22 [History] Follow up Appointment(s)/Referral(s): Stephan Mcclain DO [Primary Care Provider] - 1-2 days Taya Sharp MD [STAFF PHYSICIAN] - 02/28/22 Discharge Disposition: HOME SELF-CARE
[2022-02-16 18:46] LABS: % Iron Saturation 13.12 (12.00-45.00)
[2022-02-17 11:20] LABS: Zinc, Serum 80 ug/dL (60-130)
[2022-02-20 06:57] LABS: Vitamin A 17 ug/dL (38-106)
[2022-02-20 10:48] LABS: Vit B1(Thiamine) 13 ug/L (38-122)
[2022-02-20 17:41] LABS: Selenium 74 mcg/L (63-160)
== END 2022-02-16 16:23 | disposition home or self-care (01) ==
LOC: EC 15:38 → 6NMEDSUR 16:08
PROVIDERS: ADMIT Surgery Plastic and Reconstructive Surgery; ATTEND Surgery Plastic and Reconstructive Surgery
DX: K95.89 Other complications of other bariatric procedure (principal); E86.0 Dehydration; R34 Anuria and oliguria; T18.2XXA Foreign body in stomach, initial encounter; M16.0 Bilateral primary osteoarthritis of hip; M17.0 Bilateral primary osteoarthritis of knee; Z98.891 History of uterine scar from previous surgery; Z98.890 Other specified postprocedural states; F32.A Depression, unspecified; Z87.891 Personal history of nicotine dependence; Z80.8 Family history of malignant neoplasm of other organs or systems; Z79.899 Other long term (current) drug therapy
CPT/HCPCS: 96374; 99284; 84255; 84425; 80053; 80048; 82607; 82728; 82746; 83540; 83550; 83735; 84100; 84443; 84590; 84630; 85025 ×2; 82306; 43245; G0378 ×2; J3480; J3475; J2704; C9113 ×2; J2001; C1727

== ENCOUNTER → 2022-02-15 | Outpatient (CLI) | payer BC ==
[2022-02-15 15:18] VITALS: BP 131/93; PULSE 103; TEMP 98.3; BMI 46.4
--- NOTE | 2022-02-15 15:31 | P.BASOAP ---
Subjective Progress Note Date: 02/15/22 She reports heartburn. Omeprazole. Admission Objective - Vital Signs Vital signs: Vital Signs Temp 98.3 F 02/15/22 15:14 Pulse 103 H 02/15/22 15:14 Resp BP 131/93 02/15/22 15:14 Pulse Ox FiO2 Intake & Output 02/14/22 02/15/22 02/15/22 18:59 06:59 18:59 Weight 132.449 kg Assessment/Plan Plan: Date: 02/15/22 Initial Weight: 153.314 kg Initial BMI: 53.7 Current Weight: 132.449 kg Current BMI: 46.4 Type of Surgery: Total Volume in Band: Previous Volume: Volume Removed: Volume Added: Band Size:
== END | disposition home or self-care (01) ==
LOC: BARWHC3 14:52
PROVIDERS: ATTEND Surgery Plastic and Reconstructive Surgery
DX: E66.01 Morbid (severe) obesity due to excess calories (principal); Z68.42 Body mass index [BMI] 45.0-49.9, adult
CPT/HCPCS: 99211

== ENCOUNTER 2022-02-27 07:23 | Inpatient (IN) | payer BC ==
--- NOTE | 2022-02-27 07:38 | P.GSHP ---
History of Present Illness H&P Date: 02/27/22 CHIEF COMPLAINT: GERD HISTORY OF PRESENT ILLNESS: The patient is a 36-year-old female who presents reports gastroesophageal reflux disease. Upper endoscopy was offered for further evaluation and management. PAST MEDICAL HISTORY: Please see list. PAST SURGICAL HISTORY: Please see list. MEDICATIONS: Please see list. ALLERGIES: Please see list. SOCIAL HISTORY: No illicit drug use FAMILY HISTORY: No reports of Crohn disease or ulcerative colitis. REVIEW OF ORGAN SYSTEMS: CONSTITUTIONAL: No reports of fevers or chills. GI: Denies any blood in stools or constipation. PHYSICAL EXAM: VITAL SIGNS: Stable GENERAL: Well-developed and pleasant in no acute distress. HEENT: No scleral icterus. Extraocular movements grossly intact. Moist buccal mucosa. NECK: Supple without lymphadenopathy. CHEST: Unlabored respirations. Equal bilateral excursions. CARDIOVASCULAR: Regular rate and rhythm. Distal 2+ pulses. ABDOMEN: Soft, nondistended. MUSCULOSKELETAL: No clubbing, cyanosis, or edema. ASSESSMENT: 1. Gastroesophageal reflux disease PLAN: 1. Recommend proceeding with an upper endoscopy Past Medical History Past Medical History: GERD/Reflux, Osteoarthritis (OA) Additional Past Medical History / Comment(s): arthritis hips and knees., constipation, iron infusions., dysphagia - States she has to crush her pills., hx cha-en-y (12/2021) History of Any Multi-Drug Resistant Organisms: None Reported Past Surgical History: Bariatric Surgery, Section Additional Past Surgical History / Comment(s): [place] teeth. EGD . Gastric bypass, Cha-en-Y 12/22/21, egd with dilation 02/16/22 Past Anesthesia/Blood Transfusion Reactions: No Reported Reaction Past Psychological History: Anxiety, Depression Smoking Status: Former smoker Past Alcohol Use History: None Reported Additional Past Alcohol Use History / Comment(s): quit smoking 10/09/21, hx electronic cigarettes. Past Drug Use History: Marijuana Additional Drug Use History / Comment(s): Rare marijuana use - Past Family History Mother Family Medical History: Cancer Additional Family Medical History / Comment(s): mycosis fungoids Medications and Allergies Home Medications Medication Instructions Recorded Confirmed Type Omeprazole [PriLOSEC] 40 mg PO BID #60 cap 01/18/22 02/24/22 Rx Sucralfate [Carafate] 1 gm PO BID #60 tablet 02/08/22 02/24/22 Rx lamoTRIgine [LaMICtal] 50 mg PO HS 02/15/22 02/24/22 History FLUoxetine HCL [PROzac] 20 mg PO DAILY 02/24/22 02/24/22 History Allergies Allergy/AdvReac Type Severity Reaction Status Date / Time No Known Allergies Allergy Verified 02/24/22 09:22
[2022-02-27] MEDS: LACTATED RINGERS 1,000 ML IV SCH ×2 (08:20→08:25)
[2022-02-27] MEDS ORDERED: PROPOFOL 10 MG/ML 20 ML VIAL IV ONE (08:30)
[2022-02-27] MEDS ORDERED: LIDOCAINE 2% INJ 20 MG/ML (2 ML VIAL) ONE (08:30)
--- NOTE | 2022-02-27 08:52 | P.PCN ---
Date of Procedure: 02/27/22 Description of Procedure: PREOPERATIVE DIAGNOSIS: Dysphagia. Gastrojejunal stricture POSTOPERATIVE DIAGNOSIS: Dysphagia. Gastrojejunal stricture with obstruction without perforation OPERATION: Esophagogastrojejunoscopy with balloon dilatation from 9 to 20 mm, [employer] esophageal balloon SURGEON: Taya Sharp MD ANESTHESIA: MAC. INDICATIONS: The patient is a 36-year-old female who presents with a history of dysphagia due to gastrojejunal stricture. Benefits and risks of the procedure were described. Informed consent was obtained. DESCRIPTION: The patient was brought into the endoscopy suite and laid in the left lateral decubitus position. After a timeout was confirmed, the procedure was initiated. An Olympus gastroscope was passed along the posterior oropharynx down to the distal esophagus where the squamocolumnar junction was unremarkable. The gastric pouch was entered. A gastrojejunal stricture of 9 mm was found as the adult gastroscope was 9.5 mm in size. Dissolved pill was found completely obstructing the stomach. A [employer] balloon dilator was placed through the scope. Final insufflation up to 20 mm was performed with a total of 2 minutes. The mucosa of the gastrojejunal anastomosis was intact. No full-thickness injury was encountered. The scope could not pass the anastomosis. The GI tract was desufflated. The patient tolerated the procedure well. FINDINGS: Stricture of approximately 9 mm encountered. Successful balloon dilatation to 20 mm. Gastric pouch 5 cm. RECOMMENDATIONS: Upper endoscopy as needed Continue Carafate and Prilosec for 4 weeks Plan - Discharge Summary New Discharge Prescriptions: Continue Omeprazole [PriLOSEC] 40 mg PO BID #60 cap Sucralfate [Carafate] 1 gm PO BID #60 tablet lamoTRIgine [LaMICtal] 50 mg PO HS FLUoxetine HCL [PROzac] 20 mg PO DAILY Discharge Medication List Omeprazole [PriLOSEC] 40 mg PO BID #60 cap 01/18/22 [Rx] Sucralfate [Carafate] 1 gm PO BID #60 tablet 02/08/22 [Rx] lamoTRIgine [LaMICtal] 50 mg PO HS 02/15/22 [History] FLUoxetine HCL [PROzac] 20 mg PO DAILY 02/24/22 [History] [place]ment[facility] Patient Instructions/Handouts: Esophageal Dilation (DC) Activity/Diet/Wound Care/Special Instructions: Liquid diet today for 2 days. May advance to pured diet 03/01/2022. Trial of ground diet 03/04/2022 Discharge Disposition: HOME SELF-CARE
--- NOTE | 2022-02-27 09:11 | P.PN ---
Progress Note - Text Progress Note Date: 02/27/22 Patient reports new chest pain and epigastric pain including bilateral shoulder pain. We'll obtain stat chest x-ray for possible esophageal tear. Will keep nothing by mouth at this time.
[2022-02-27] MEDS ORDERED: ONDANSETRON 4 MG/2 ML VIAL IVP PRN (09:24)
[2022-02-27] MEDS ORDERED: NALOXONE 0.4 MG/ML 1 ML VIAL IV PRN ×2 (09:24→22:10)
--- NOTE | 2022-02-27 09:24 | P.PN ---
Subjective Progress Note Date: 02/27/22 CHIEF COMPLAINT: Atypical chest pain HISTORY OF PRESENT ILLNESS: The patient is a 36-year-old female status post upper endoscopy. Following procedure, patient reports new bilateral shoulder pain or epigastric pain. She has not drank anything yet. ROS: No fevers or chills. No new chest pain. No productive sputum PHYSICAL EXAM: VITAL SIGNS: Reviewed CONSTITUTIONAL: Well developed and in no acute distress. EYES: Conjuctivae without sclera icterus. Extraocular movements grossly intact. HEAD, EARS, NOSE, THROAT: Moist buccal mucosa. Head is atraumatic, normocephalic. Hears conversational speech. No nasal drainage. RESPIRATORY: Non-labored respirations and equal bilateral excursions. CARDIOVASCULAR: Palpable 2+ radial pulses. ABDOMEN: Tender epigastrium. MUSCULOSKELETAL: No gross deformity of the lower extremities noted. No clubbing. No cyanosis. SKIN: Good skin turgor. Well perfused. NEUROLOGIC: Cranial nerves II through XII grossly intact. No focal or lateralizing signs. PSYCH: Appropriate affect. Alert and oriented to person, place and time. STUDIES: Separable chest x-ray review demonstrates free air underneath right diaphragm consistent with perforation. ASSESSMENT: 1. Esophageal perforation following upper endoscopy. PLAN: 1. Recommended immediate inpatient admission. 2. Nothing by mouth status. Objective - Vital Signs Vital signs: Vital Signs Temp 96.8 F L 02/27/22 08:11 Pulse 74 02/27/22 08:58 Resp 16 02/27/22 08:58 BP 120/83 02/27/22 08:58 Pulse Ox 97 02/27/22 08:58 FiO2 Intake & Output 02/26/22 02/27/22 02/27/22 18:59 06:59 18:59 Intake Total 700 Balance 700 Weight 129.9 kg Intake: IV 700
--- NOTE | 2022-02-27 09:35 | XR ---
"EXAMINATION TYPE: XR chest 1V portable DATE OF EXAM: 02/27/2022 Comparison: Correlation CT 01/16/2022 Clinical History: 36-year-old female Chest pain s/p esophageal dilation Findings: Heart normal size. Aorta and pulmonary vasculature within normal limits. Some strandy atelectasis in the lower lungs. Mild central peribronchial cuffing may be chronic or could reflect bronchitis or chr onic asthma. No consolidation or pleural effusion seen. There is mild free air seen below the right hemidiaphragm. Impression: 1. Mild free air seen below the right hemidiaphragm. Unable to exclude hollow viscus perforation. Cli nically correlate. 2. No acute cardiopulmonary process. A [place] critical message alert has been initiated for Taya Sharp MD via the [employer] | Critical Results System on 02/27/2022 9:32 AM. This message alert has been sent to Taya rivas MD via the preferences provided by the clinician for the receipt of Radiology Critical Findings . Message ID [id number]. support service tech will also contacted nursing on the floor."
[2022-02-27] MEDS ORDERED: LACTATED RINGERS 1,000 ML IV ONE (09:56)
[2022-02-27] MEDS: PIPERACILLIN-TAZOBACTAM 3.375 GM in SODIUM CHLORIDE 0.9% 100 ML IVPB SCH ×2 (11:50→17:31)
[2022-02-27] MEDS: SODIUM CHLORIDE 0.9% 1,000 ML IV SCH ×2 (11:51→17:31)
[2022-02-27 14:48] LABS: African American GFR (CKD) >90 (>60 ml/min/1.73 sqM); Anion Gap 4 mmol/L; Blood Urea Nitrogen 10 mg/dL (7-17); Calcium 8.5 mg/dL (8.4-10.2); Carbon Dioxide 29 mmol/L (22-30); Chloride 106 mmol/L (98-107); Glucose 81 mg/dL (74-99); Non-African American GFR(CKD) >90 (>60 ml/min/1.73 sqM); Potassium 4.3 mmol/L (3.5-5.1); Sodium 139 mmol/L (137-145)
[2022-02-27 14:51] LABS: Basophils % (A) 1 %; Eosinophils # (A) 0.1 k/uL (0-0.7); Eosinophils % (A) 2 %; HCT 37.2 % (34.0-46.0); HGB 12.1 gm/dL (11.4-16.0); Lymphocytes # (A) 1.2 k/uL (1.0-4.8); Lymphocytes % (A) 21 %; MCH 27.5 pg (25.0-35.0); MCHC 32.5 g/dL (31.0-37.0); MCV 84.7 fL (80.0-100.0); Mean Platelet Volume 8.4; Monocytes # (A) 0.3 k/uL (0-1.0); Monocytes % (A) 5 %; Neutrophils % (A) 69 %; Platelet Count 103 k/uL (150-450); RDW 15.9 % (11.5-15.5); WBC 5.7 k/uL (3.8-10.6)
--- NOTE | 2022-02-27 16:26 | P.PN ---
Progress Note - Text Progress Note Date: 02/27/22 Patient reevaluated this afternoon. She reports resolution of shoulder pain. Her abdominal pain is mild. Patient is strict nothing by mouth. Labs demonstrates no leukocytosis. Continue antibiotics and nothing by mouth status for 24 hours.
[2022-02-27] MEDS: PANTOPRAZOLE 40 MG/10 ML VIAL IV SCH (21:31)
[2022-02-27] MEDS ORDERED: fentaNYL PCA 500 MCG/50 ML BAG IV PRN (22:10)
[2022-02-27] MEDS ORDERED: SODIUM CHLORIDE 0.9% 2,000 ML IV ONE (22:18)
[2022-02-27] MEDS: ACETAMINOPHEN IV (For NPO) 1,000 MG in EMPTY BAG 1 BAG IVPB SCH (22:57)
[2022-02-28] MEDS: ACETAMINOPHEN IV (For NPO) 1,000 MG in EMPTY BAG 1 BAG IVPB SCH ×5 (00:43→21:11)
[2022-02-28] MEDS: PIPERACILLIN-TAZOBACTAM 3.375 GM in SODIUM CHLORIDE 0.9% 100 ML IVPB SCH ×3 (01:38→17:31)
[2022-02-28] MEDS: SODIUM CHLORIDE 0.9% 1,000 ML IV SCH ×3 (01:39→17:34)
[2022-02-28] MEDS: LACTATED RINGERS 1,000 ML IV SCH (07:29)
[2022-02-28] MEDS: ENOXAPARIN 40 MG/0.4 ML SYRINGE SQ SCH (09:33)
--- NOTE | 2022-02-28 09:37 | P.PN ---
Subjective Progress Note Date: 02/28/22 CHIEF COMPLAINT: Atypical chest pain HISTORY OF PRESENT ILLNESS: The patient is a 36-year-old female status post upper endoscopy with dilation of her gastric stricture. Following procedure, she developed shoulder and epigastric abdominal pain. Patient reports recurrent shoulder pain and epigastric pain. Pain is not worse than yesterday. Pain is controlled with Tylenol. ROS: No fevers or chills. No productive sputum. No nausea or vomiting. PHYSICAL EXAM: VITAL SIGNS: Reviewed CONSTITUTIONAL: Well developed and in no acute distress. EYES: Conjuctivae without sclera icterus. Extraocular movements grossly intact. HEAD, EARS, NOSE, THROAT: Moist buccal mucosa. Head is atraumatic, normoc ephalic. Hears conversational speech. No nasal drainage. RESPIRATORY: Non-labored respirations and equal bilateral excursions. CARDIOVASCULAR: Palpable 2+ radial pulses. ABDOMEN: Tender epigastrium. No peritonitis. MUSCULOSKELETAL: No gross deformity of the lower extremities noted. No clubbin g. No cyanosis. SKIN: Good skin turgor. Well perfused. NEUROLOGIC: Cranial nerves II through XII grossly intact. No focal or lateralizing signs. PSYCH: Appropriate affect. Alert and oriented to person, place and time. LABS: WBC normal at 4.3. Hemoglobin normal at 1.6. ASSESSMENT: 1. Anastomotic perforation following upper endoscopy for gastric stricture PLAN: 1. Patient reports overall pain is stable if not improving. Surgical intervention described pending clinical course. 2. We'll repeat abdominal x-ray 24 hours from event for improvement of pneumoperitoneum. 3. Options of exploration with repair descried. 4. Otherwise, patient nontoxic in appearance with normal white blood cell count. 5. Continue antibiotics and nothing by mouth status. ADDENDUM: STUDIES: Chest x-ray of the abdomen demonstrates decreased pneumoperitoneum. This is my independent interpretation. Objective - Vital Signs Vital signs: Vital Signs Temp 98.4 F 02/28/22 07:16 Pulse 82 02/28/22 07:16 Resp 16 02/28/22 07:16 BP 125/80 02/28/22 07:16 Pulse Ox 98 02/28/22 07:16 FiO2 Intake & Output 02/27/22 02/28/22 02/28/22 18:59 06:59 18:59 Intake Total 700 Output Total 400 Balance 700 -400 Weight 129.9 kg Intake: IV 700 Output: Urine 400 Other: # Voids 1 - Labs CBC & Chem 7: 03/01/22 06:13 03/02/22 04:38 Labs: Abnormal Lab Results - Last 24 Hours (Table) 02/27/22 Range/Units 14:19 RDW 15.9 H (11.5-15.5) % Plt Count 103 L (150-450) k/uL
[2022-02-28] MEDS: PANTOPRAZOLE 40 MG/10 ML VIAL IV SCH ×2 (10:11→21:10)
--- NOTE | 2022-02-28 10:18 | XR ---
EXAMINATION TYPE: XR chest 1V portable DATE OF EXAM: 02/28/2022 COMPARISON: Chest x-ray 02/27/2022 HISTORY: Pneumoperitoneum TECHNIQUE: Single frontal view of the chest is obtained. FINDINGS: Crescentic lucency beneath right hemidiaphragm is less conspicuous on today's exam. There i s no focal air space opacity, pleural effusion, or pneumothorax seen. The cardiac silhouette size is within normal limits. The osseous structures are intact. IMPRESSION: Pneumoperitoneum appears less conspicuous on today's exam
--- NOTE | 2022-02-28 11:19 | P.PN ---
Progress Note - Text Progress Note Date: 02/28/22 Patient updated on chest xray findings with decreased free air. At this time awaiting, CBC. Clinically she is stable and improving. Will add ice ships and re-assess
[2022-02-28 11:28] LABS: Anisocytosis Slight; Basophils % (A) 0 %; Eosinophils # (A) 0.1 k/uL (0-0.7); Eosinophils % (A) 3 %; HCT 35.9 % (34.0-46.0); HGB 11.6 gm/dL (11.4-16.0); Hypochromasia Slight; Lymphocytes # (A) 1.2 k/uL (1.0-4.8); Lymphocytes % (A) 27 %; MCH 27.8 pg (25.0-35.0); MCHC 32.4 g/dL (31.0-37.0); MCV 85.8 fL (80.0-100.0); Mean Platelet Volume 7.6; Monocytes # (A) 0.2 k/uL (0-1.0); Monocytes % (A) 5 %; Neutrophils # (A) 2.7 k/uL (1.3-7.7); Neutrophils % (A) 63 %; Platelet Count 100 k/uL (150-450); RBC 4.19 m/uL (3.80-5.40); WBC 4.3 k/uL (3.8-10.6)
[2022-03-01] MEDS: PIPERACILLIN-TAZOBACTAM 3.375 GM in SODIUM CHLORIDE 0.9% 100 ML IVPB SCH ×3 (02:33→17:42)
[2022-03-01] MEDS: ACETAMINOPHEN IV (For NPO) 1,000 MG in EMPTY BAG 1 BAG IVPB SCH ×3 (02:34→14:57)
--- NOTE | 2022-03-01 08:37 | P.PN ---
Subjective Progress Note Date: 03/01/22 CHIEF COMPLAINT: Abdominal pain status post esophageal dilation HISTORY OF PRESENT ILLNESS: The patient is a 36-year-old who is status post esophageal dilation with abdominal pain. Her abdominal pain is resolved. Her shoulder pain is resolved. She is tolerating ice chips. ROS: No reports of nausea and vomiting. No fevers or chills. No new chest pain. No productive sputum PHYSICAL EXAM: VITAL SIGNS: Reviewed CONSTITUTIONAL: Well developed and in no acute distress. EYES: Conjuctivae without sclera icterus. Extraocular movements grossly intact. HEAD, EARS, NOSE, THROAT: Moist buccal mucosa. Head is atraumatic, normocephalic. Hears conversational speech. No nasal drainage. RESPIRATORY: Non-labored respirations and equal bilateral excursions. CARDIOVASCULAR: Palpable 2+ radial pulses. ABDOMEN: No peritonitis. MUSCULOSKELETAL: No gross deformity of the lower extremities noted. No clubbing. No cyanosis. SKIN: Good skin turgor. Well perfused. NEUROLOGIC: Cranial nerves II through XII grossly intact. No focal or lateralizing signs. PSYCH: Appropriate affect. Alert and oriented to person, place and time. CLINICAL LABS: Reviewed. WBC yesterday normal. Current pending. ASSESSMENT: 1. Status post esophageal dilation for esophageal stricture with rupture 2. Dysphagia PLAN: 1. Clinically, patient symptoms have resolved. 2. Trial of liquids including barium swallow described 3. Anticipated discharge pending results. Objective - Vital Signs Vital signs: Vital Signs Temp 98.0 F 03/01/22 02:00 Pulse 75 03/01/22 02:00 Resp 18 03/01/22 02:00 BP 130/80 03/01/22 02:00 Pulse Ox 98 03/01/22 02:00 FiO2 Intake & Output 02/28/22 03/01/22 03/01/22 18:59 06:59 18:59 Intake Total 0 Output Total 400 Balance -400 Intake: Oral 0 Output: Urine 400 Other: Voiding Method Toilet Toilet - Labs CBC & Chem 7: 02/28/22 10:45 02/27/22 14:19 Labs: Abnormal Lab Results - Last 24 Hours (Table) 02/28/22 Range/Units 10:45 RDW 16.0 H (11.5-15.5) % Plt Count 100 L (150-450) k/uL
[2022-03-01] MEDS: SODIUM CHLORIDE 0.9% 1,000 ML IV SCH ×4 (08:57→22:52)
[2022-03-01 09:36] LABS: Basophils # (A) 0.04 X 10*3/uL (0.00-0.10); Basophils % (A) 0.9 %; Eosinophils # (A) 0.13 X 10*3/uL (0.04-0.35); Eosinophils % (A) 2.8 %; HCT 35.7 % (37.2-46.3); HGB 11.1 g/dL (12.0-15.0); Immature Grans, Automated 0.2 %; Lymphocytes # (A) 1.62 X 10*3/uL (0.90-5.00); Lymphocytes % (A) 34.5 %; MCH 26.2 pg (27.0-32.0); MCHC 31.1 g/dL (32.0-37.0); MCV 84.4 fL (80.0-97.0); Monocytes # (A) 0.33 X 10*3/uL (0.20-1.00); NRBC Per 100 WBC 0 /100 WBCS (0.0-0.0); Neutrophils # (A) 2.57 X 10*3/uL (1.80-7.70); Neutrophils % (A) 54.6 %; Platelet Count 109 X 10*3/uL (140-440); RBC 4.23 X 10*6/uL (4.10-5.20); RDW 15.5 % (11.5-14.5)
[2022-03-01] MEDS: ENOXAPARIN 40 MG/0.4 ML SYRINGE SQ SCH (09:36)
[2022-03-01] MEDS: PANTOPRAZOLE 40 MG/10 ML VIAL IV SCH ×2 (09:37→22:52)
[2022-03-01] MEDS ORDERED: SODIUM FERRIC GLUCONAT-SUCROSE 125 MG in SODIUM CHLORIDE 0.9% 100 ML IVPB ONE (11:00)
[2022-03-01] MEDS: THIAMINE 100 MG in SODIUM CHLORIDE 0.9% 50 ML IVPB SCH ×2 (11:14→22:51)
--- NOTE | 2022-03-01 12:30 | P.PN ---
Progress Note - Text Progress Note Date: 03/01/22 Patient reports mild pain with ice chips. Hold diet. TPN ordered. Keep NPO. Continue antibiotics. Alternatives of surgery reviewed. Patient had thiamine deficiency and iron deficiency with infusions started.
[2022-03-01 13:34] LABS: INR 1.1 (<1.2); Prothrombin Time 11.6 sec (9.0-12.0)
[2022-03-01] MEDS ORDERED: LIDOCAINE 1% INJ 10MG/ML (5 ML VIAL-PF) SQ ONE (13:56)
--- NOTE | 2022-03-01 15:07 | IR ---
PICC LINE PLACEMENT: HISTORY: Infection requiring long-term antibiotic therapy PROCEDURE: Ultrasound and fluoroscopic guidance of PICC line placement. COMPLICATIONS: None ANESTHESIA: 1. 1% Lidocaine locally. FINDINGS/TECHNIQUE: The procedure was explained to the patient. The risks, complications, benefits and alternatives were discussed and any questions were answered. Informed consent was obtained. The patient was placed supine on the fluoroscopic table and prepped and draped in the usual sterile fash ion. Utilizing a 21 gauge needle and sonographic and fluoroscopic guidance, access in the left ceph alic vein was achieved and there is placement of a 0.018 guidewire. The vein is patent. A 4-F sheat h was placed over the guidewire. The guidewire and dilator were removed and a 4-F. PICC line was loan last through the sheath with the tip at the level of the SVC. The sheath was removed, the catheter wa s flushed and sutured into position. The patient was stable throughout the procedure and remained st able upon discharge from the Department of Radiology. The vein puncture was patent under ultrasound. A busch scale image was obtained to document patency of the vein punctured. All elements of the maximal barrier technique were utilized. FLUOROSCOPY TIME: 0.2 minutes and one images submitted IMPRESSION: Successful PICC line placement under ultrasound and fluoroscopic guidance.
[2022-03-01 16:30] VITALS: BMI 47.6
[2022-03-01 17:11] LABS: ALT 19 U/L (4-34); AST 22 U/L (14-36); African American GFR (CKD) >90 (>60 ml/min/1.73 sqM); Albumin 3.4 g/dL (3.5-5.0); Albumin/Globulin Ratio 1.4; Alkaline Phosphatase 87 U/L (38-126); Anion Gap 9 mmol/L; Blood Urea Nitrogen 3 mg/dL (7-17); Calcium 8.3 mg/dL (8.4-10.2); Carbon Dioxide 24 mmol/L (22-30); Chloride 105 mmol/L (98-107); Globulin 2.5 g/dL; Glucose 70 mg/dL (74-99); Magnesium 1.7 mg/dL (1.6-2.3); Non-African American GFR(CKD) >90 (>60 ml/min/1.73 sqM); Phosphorus 3.5 mg/dL (2.5-4.5); Potassium 4.5 mmol/L (3.5-5.1); Sodium 138 mmol/L (137-145); Total Bilirubin 0.6 mg/dL (0.2-1.3); Total Protein 5.9 g/dL (6.3-8.2)
[2022-03-01] MEDS ORDERED: FAT EMULSION 20% 500 ML in EMPTY BAG 1 BAG IV SCH (18:30)
[2022-03-01] MEDS ORDERED: MVI, ADULT NO.4 WITH VIT K 10 ML, TRACE (CONC-1ML/DOSE) 1 ML in AMINO ACID 4.25%-D10W+L... IV ONE ×3 (18:30)
[2022-03-02] MEDS: PIPERACILLIN-TAZOBACTAM 3.375 GM in SODIUM CHLORIDE 0.9% 100 ML IVPB SCH ×3 (01:31→17:22)
[2022-03-02 05:10] LABS: Ionized Calcium 4.8 mg/dL (4.5-5.3)
[2022-03-02 05:23] LABS: African American GFR (CKD) >90 (>60 ml/min/1.73 sqM); Anion Gap 8 mmol/L; Blood Urea Nitrogen 3 mg/dL (7-17); Calcium 8.1 mg/dL (8.4-10.2); Carbon Dioxide 22 mmol/L (22-30); Chloride 106 mmol/L (98-107); Glucose 74 mg/dL (74-99); Magnesium 1.6 mg/dL (1.6-2.3); Non-African American GFR(CKD) >90 (>60 ml/min/1.73 sqM); Phosphorus 3.6 mg/dL (2.5-4.5); Potassium 3.8 mmol/L (3.5-5.1); Sodium 136 mmol/L (137-145)
[2022-03-02] MEDS: THIAMINE 100 MG in SODIUM CHLORIDE 0.9% 50 ML IVPB SCH ×2 (08:18→22:42)
[2022-03-02] MEDS: PANTOPRAZOLE 40 MG/10 ML VIAL IV SCH ×2 (09:21→22:42)
--- NOTE | 2022-03-02 16:46 | P.PN ---
Subjective Progress Note Date: 03/02/22 CHIEF COMPLAINT: Abdominal pain status post esophageal dilation HISTORY OF PRESENT ILLNESS: The patient is a 36-year-old who is status post esophageal dilation with abdominal pain. She reports no further epigastric abdominal pain today. TPN and PICC line placed for antibiotics. She reports mild shoulder pain with deep inspiration. Additionally, she reports gurgling sensation with deep inspiration. Otherwise no fevers or chills. She has been nothing by mouth. Family at bedside including her young daughter. ROS: No reports of nausea and vomiting. No fevers or chills. No new chest pain. No productive sputum PHYSICAL EXAM: VITAL SIGNS: Reviewed CONSTITUTIONAL: Well developed and in no acute distress. EYES: Conjuctivae without sclera icterus. Extraocular movements grossly intact. HEAD, EARS, NOSE, THROAT: Moist buccal mucosa. Head is atraumatic, normocephalic. Hears conversational speech. No nasal drainage. RESPIRATORY: Non-labored respirations and equal bilateral excursions. CARDIOVASCULAR: Palpable 2+ radial pulses. ABDOMEN: No peritonitis. MUSCULOSKELETAL: No gross deformity of the lower extremities noted. No clubbing. No cyanosis. SKIN: Good skin turgor. Well perfused. NEUROLOGIC: Cranial nerves II through XII grossly intact. No focal or lateralizing signs. PSYCH: Appropriate affect. Alert and oriented to person, place and time. CLINICAL LABS: Reviewed. WBC normal without shift. Low thiamine. Low iron. ASSESSMENT: 1. Status post esophageal dilation for esophageal stricture 2. Dysphagia 3. Thiamine deficiency 4. Iron deficiency PLAN: 1. Will obtain abdominal x-ray for any residual free air. Surgical options for exploration were reviewed for any persistent free air. 2. Continue with antibiotics including TPN and nothing by mouth status. 3. Find an infusion due to symptomatic thiamine deficiency 4. Iron infusion for symptomatic iron deficiency anemia Objective - Vital Signs Vital signs: Vital Signs Temp 99.1 F 03/02/22 08:00 Pulse 65 03/02/22 08:00 Resp 16 03/02/22 08:00 BP 134/82 03/02/22 08:00 Pulse Ox 98 03/02/22 08:00 FiO2 Intake & Output 03/01/22 03/02/22 03/02/22 18:59 06:59 18:59 Intake Total 1150 2354 Balance 1150 2354 Weight 129.9 kg 129.9 kg Intake: Intake, IV Titration 1150 2354 Amount ACETAMINOPHEN IV (For NPO 100 ) 1,000 mg In Empty Bag 1 bag @ 400 mls/hr IVPB Q6H [facility] Rx#:[id number] Fat Emulsion 20% 500 ml 504 In Empty Bag 1 bag @ 42 mls/hr IV We [facility] Rx#: [id number] Mvi, Adult No.4 with Vit 360 K 10 ml Trace (Conc-1Ml/ Dose) 1 ml In Amino Acid 4.25%-D10w+Lytes*E* 1,000 ml @ 30 mls/hr IV .Q24H [facility] Rx#:[id number] Piperacillin-Tazobactam 3 200 .375 gm In Sodium Chloride 0.9% 100 ml @ 25 mls/hr IVPB Q8H [facility] Rx#: [id number] Sodium Chloride 0.9% 1, 700 1440 000 ml @ 130 mls/hr IV . Q7H42M [facility] Rx#:[id number] Sodium Ferric Gluconat- 100 Sucrose 125 mg In Sodium Chloride 0.9% 100 ml @ 100 mls/hr IVPB ONCE [facility] Rx#:[id number] Thiamine 100 mg In Sodium 50 50 Chloride 0.9% 50 ml @ 100 mls/hr IVPB Q12HR [facility] Rx#:[id number] Oral 0 Other: Voiding Method Toilet Toilet # Voids 3 2 # Bowel Movements 0 0 - Labs CBC & Chem 7: 03/01/22 06:13 03/02/22 04:38 Labs: Abnormal Lab Results - Last 24 Hours (Table) 03/01/22 03/02/22 Range/Units 16:45 04:38 Sodium 136 L (137-145) mmol/L BUN 3 L 3 L (7-17) mg/dL Glucose 70 L (74-99) mg/dL Calcium 8.3 L 8.1 L (8.4-10.2) mg/dL Total Protein 5.9 L (6.3-8.2) g/dL Albumin 3.4 L (3.5-5.0) g/dL
--- NOTE | 2022-03-02 18:50 | P.PN ---
Progress Note - Text Progress Note Date: 03/02/22 Chest x-ray reviewed with persistent free air despite clinical improvement. Patient notified of findings. Surgical exploration described.
--- NOTE | 2022-03-02 22:09 | XR ---
EXAMINATION: XR chest 2V DATE AND TIME: 03/02/2022 5:41 PM CLINICAL INDICATION: PHH; chest pain TECHNIQUE: Departmental protocol COMPARISON: 07/01/2022 FINDINGS: The pneumoperitoneum appears more conspicuous on today's radiograph, both right and left-sided. The lungs are clear. The pleural spaces are negative. Left upper extremity PICC line tip superimposed over the cavoatrial junction. The cardiac silhouette is not enlarged. The remainder of the mediastinal silhouette is unremarkable. The skeletal structures are negative for acute findings. IMPRESSION: PNEUMOPERITONEUM APPEARS MORE CONSPICUOUS ON TODAY'S RADIOGRAPH. CT\XR technologist calling the resul ts to the patient's caregivers now.
[2022-03-02] MEDS: SODIUM CHLORIDE 0.9% 1,000 ML IV SCH (23:20)
[2022-03-02] MEDS: 1: MVI, ADULT NO.4 WITH VIT K 10 ML, TRACE (CONC-1ML/DOSE) 1 ML in AMINO ACID 4.25%-D10W IV SCH ×3 (23:42)
[2022-03-03] MEDS: SODIUM CHLORIDE 0.9% 1,000 ML IV SCH ×4 (00:58→22:51)
[2022-03-03] MEDS: PIPERACILLIN-TAZOBACTAM 3.375 GM in SODIUM CHLORIDE 0.9% 100 ML IVPB SCH ×3 (04:00→20:32)
[2022-03-03] MEDS: PANTOPRAZOLE 40 MG/10 ML VIAL IV SCH ×2 (08:32→21:36)
[2022-03-03 09:15] LABS: Basophils # (A) 0.03 X 10*3/uL (0.00-0.10); Basophils % (A) 0.7 %; Eosinophils # (A) 0.15 X 10*3/uL (0.04-0.35); Eosinophils % (A) 3.3 %; HCT 35.8 % (37.2-46.3); HGB 11.5 g/dL (12.0-15.0); Immature Grans, Automated 0.4 %; Lymphocytes % (A) 30.8 %; MCH 26.7 pg (27.0-32.0); MCHC 32.1 g/dL (32.0-37.0); MCV 83.1 fL (80.0-97.0); Mean Platelet Volume 10.6 fL (9.5-12.2); Monocytes # (A) 0.28 X 10*3/uL (0.20-1.00); Monocytes % (A) 6.2 %; NRBC Per 100 WBC 0 /100 WBCS (0.0-0.0); Neutrophils # (A) 2.66 X 10*3/uL (1.80-7.70); Neutrophils % (A) 58.6 %; Platelet Count 108 X 10*3/uL (140-440); RBC 4.31 X 10*6/uL (4.10-5.20); RDW 15.9 % (11.5-14.5); WBC 4.54 X 10*3/uL (4.50-10.00)
--- NOTE | 2022-03-03 09:22 | P.PN ---
Subjective Progress Note Date: 03/03/22 CHIEF COMPLAINT: Abdominal pain status post esophageal dilation HISTORY OF PRESENT ILLNESS: The patient is a 36-year-old who is status post esophageal dilation with abdominal pain. Patient denies any active pain. She is on TPN and has been NPO. ROS: No reports of nausea and vomiting. No fevers or chills. No new chest pain. No productive sputum PHYSICAL EXAM: VITAL SIGNS: Reviewed CONSTITUTIONAL: Well developed and in no acute distress. EYES: Conjuctivae without sclera icterus. Extraocular movements grossly intact. HEAD, EARS, NOSE, THROAT: Moist buccal mucosa. Head is atraumatic, normoce phalic. Hears conversational speech. No nasal drainage. RESPIRATORY: Non-labored respirations and equal bilateral excursions. CARDIOVASCULAR: Palpable 2+ radial pulses. ABDOMEN: No peritonitis. MUSCULOSKELETAL: No gross deformity of the lower extremities noted. No clubbing. No cyanosis. SKIN: Good skin turgor. Well perfused. NEUROLOGIC: Cranial nerves II through XII grossly intact. No focal or lateralizing signs. PSYCH: Appropriate affect. Alert and oriented to person, place and time. CLINICAL LABS: Reviewed. WBC normal STUDIES: Abdominal x-ray reviewed demonstrating persistent pneumoperitoneum. ASSESSMENT: 1. Status post esophageal dilation for esophageal stricture 2. Dysphagia 3. Thiamine deficiency 4. Iron deficiency 5. Adverse reaction from home medications. PLAN: 1. Reviewed imaging including gastric bypass. Medications were reviewed. 2. She has recurrent ulcers due to home medications lamictal with prozac. 3. Will proceed with nilay patch of anastomatic ulcer. Placement of drain described. 4. Will proceed with lysis of adhesions and repair as described. Objective - Vital Signs Vital signs: Vital Signs Temp 98.6 F 03/03/22 08:00 Pulse 73 03/03/22 08:00 Resp 18 03/03/22 08:00 BP 141/87 03/03/22 08:00 Pulse Ox 97 03/03/22 08:00 FiO2 Intake & Output 03/02/22 03/03/22 03/03/22 18:59 06:59 18:59 Intake Total 1526 Output Total 650 Balance 1526 -650 Weight 129.9 kg Intake: Intake, IV Titration 1526 Amount Fat Emulsion 20% 500 ml 336 In Empty Bag 1 bag @ 42 mls/hr IV We [facility] Rx#: [id number] Mvi, Adult No.4 with Vit 240 K 10 ml Trace (Conc-1Ml/ Dose) 1 ml In Amino Acid 4.25%-D10w+Lytes*E* 1,000 ml @ 30 mls/hr IV .Q24H [facility] Rx#:[id number] Piperacillin-Tazobactam 3 200 .375 gm In Sodium Chloride 0.9% 100 ml @ 25 mls/hr IVPB Q8H [facility] Rx#: [id number] Sodium Chloride 0.9% 1, 700 000 ml @ 130 mls/hr IV . Q7H42M [facility] Rx#:[id number] Thiamine 100 mg In Sodium 50 Chloride 0.9% 50 ml @ 100 mls/hr IVPB Q12HR [facility] Rx#:[id number] Oral 0 Output: Urine 650 Other: Voiding Method Toilet Toilet # Voids 4 4 # Bowel Movements 0 - Labs CBC & Chem 7: 03/03/22 03:59 03/04/22 05:51 Labs: Abnormal Lab Results - Last 24 Hours (Table) 03/03/22 Range/Units 03:59 Hgb 11.5 L (12.0-15.0) g/dL Hct 35.8 L (37.2-46.3) % MCH 26.7 L (27.0-32.0) pg RDW 15.9 H (11.5-14.5) % Plt Count 108 L (140-440) X 10*3/uL
[2022-03-03] MEDS: THIAMINE 100 MG in SODIUM CHLORIDE 0.9% 50 ML IVPB SCH (10:12)
[2022-03-03 10:23] LABS: African American GFR (CKD) 138.7 (60.0-200.0); Anion Gap 10.1 mmol/L (10.00-18.00); BUN/Creat Ratio 5.59 Ratio (12.00-20.00); Blood Urea Nitrogen 3.2 mg/dL (9.0-27.0); Calcium 8.8 mg/dL (8.7-10.3); Carbon Dioxide 24.8 mmol/L (20.0-27.5); Magnesium 1.8 mg/dL (1.5-2.4); Non-African American GFR(CKD) 119.7 (60.0-200.0); Potassium 3.4 mmol/L (3.5-5.5)
[2022-03-03] MEDS ORDERED: IV FLUID CONTINUATION 1,000 ML IV ONE ×4 (12:00→12:03)
[2022-03-03] MEDS ORDERED: DEXAMETHASONE SOD PHOSPHATE 4 MG/ML 1 ML VIAL IVP ONE (12:23)
[2022-03-03] MEDS ORDERED: ONDANSETRON 4 MG/2 ML VIAL IVP ONE (12:23)
[2022-03-03] MEDS ORDERED: MIDAZOLAM 2 MG/2 ML VIAL ONE (12:40)
[2022-03-03] MEDS ORDERED: ROCURONIUM 10 MG/ML (5 ML VIAL) IV ONE (12:40)
[2022-03-03] MEDS ORDERED: GLYCOPYRROLATE 0.2 MG/ML 2 ML VIAL ONE (12:40)
[2022-03-03] MEDS ORDERED: PHENYLEPHRINE-0.9% NACL SYG 1,000 MCG/10 ML SYRINGE ONE (12:40)
[2022-03-03] MEDS ORDERED: fentaNYL (PF) 50 MCG/ML 2 ML AMP ONE (12:40)
[2022-03-03] MEDS ORDERED: NEOSTIGMINE 1 MG/ML 10 ML VIAL ONE (12:40)
[2022-03-03] MEDS ORDERED: HYDROmorphone (PF) 1 MG/ML ONE (12:40)
[2022-03-03] MEDS ORDERED: LIDOCAINE 2% INJ 20 MG/ML (2 ML VIAL) ONE (12:40)
[2022-03-03] MEDS ORDERED: SUCCINYLCHOLINE CHLORIDE 200 MG/10 ML VIAL IV ONE (12:40)
[2022-03-03] MEDS ORDERED: PROPOFOL 10 MG/ML 20 ML VIAL IV ONE (12:40)
[2022-03-03] MEDS ORDERED: BUPIVACAIN-EPI 0.25%-1:200,000 30 ML VIAL SQ ONE (12:40)
[2022-03-03] MEDS ORDERED: METHYLENE BLUE 10 MG/ML (10 ML VIAL) MISCELLANE ONE (14:22)
--- NOTE | 2022-03-03 15:52 | P.OP ---
Date of Procedure: 03/03/22 Description of Procedure: SURGEON: NURYS GAVIN MD PREOPERATIVE DIAGNOSES: 1. Pneumoperitoneum 2. Gastrojejunal ulcer with stricture and perforation 3. Morbid obesity due to excess calories, BMI 47.7 4. Depressive disorder 5. History of gastric bypass POSTOPERATIVE DIAGNOSES: 1. Pneumoperitoneum 2. Anastomotic disruption at gastrojejunal anastomosis 3. Morbid obesity due to excess calories, BMI 47.7 4. Depressive disorder 5. History of gastric bypass 6. Gastrojejunal ulcer with stricture and perforation 7. Epiploic appendagitis OPERATION: 1. Robotic-assisted da Gabbi Xi laparoscopic with extensive lysis of adhesions 2. Repair of gastrojejunal anastomosis perforation with omental miguel patch 3. Intraoperative esophagogastrojejunoscopy 4. Placement of #19 Jose E-Macias drain, epigastrium ESTIMATED BLOOD LOSS: 5 mL. SPECIMENS REMOVED: None. COMPLICATIONS: None. OPERATIVE FINDINGS: 1. Anterior abdominal wall adhesion creating open flap of gastrojejunal anastomotic disruption 2. No intra-abdominal incisional hernias 3. Epiploic appendagitis left lower quadrant INDICATIONS: The patient is a 36-year-old female who presents with pneumoperitoneum following endoscopy dilation of gastrojejunal stricture. Conservative management was performed as her pain was controlled and without sepsis. Persistent pneumoperitoneum was identified on chest x-ray after several days and surgical intervention was described. Surgical intervention with diagnostic laparoscopy, lysis of adhesions were described. Informed consent was obtained. Robotic assisted laparoscopic approach was described. Benefits and risks of the procedure including but not limited to bleeding, infection, injury to the small bowel was described. Informed consent was obtained. DESCRIPTION OF PROCEDURE: Patient was brought to the operating room, placed in supine position. After general induction, the abdomen had been prepped and draped in standard sterile fashion. The robotic da Gabbi XI system was primed. After a timeout protocol was performed, the patient had been prepped and draped in standard sterile fashion. The robot was docked along the right lateral abdomen. Please note prior to docking of the robot, a 5 mm 0 degrees laparoscopic trocar entry was performed along the left upper quadrant. The abdomen was insufflated to 15 mmHg pressure which she tolerated well. Diagnostic laparoscopy was performed. Next, three 8 mm and one 12-mm robotic ports were placed along the upper abdomen along her prior gastric bypass incisions. Please note that the ports were placed at least 10 to 15 cm away from the target anatomy. A medium sized Nga liver retractor was placed distal to the subxiphoid process to elevate the left lobe of the liver. Instruments including graspers and vessel sealer were interchanged by the real estate executive assistant. I had sat at the console. No incisional hernia was identified. The rest of the abdomen was unremarkable for small bowel pathology. At the right lower quadrant, epiploic appendagitis of the sigmoid colon was identified. At the epigastrium, an adhesion involving the gastrojejunal anastomosis was found adhered to the anterior abdominal wall. Upon closer inspection, an anterior perforation of the gastrojejunal anastomosis was identified and persistently opened from a flap caused by the adhesion. The Cha limb distally was unremarkable. The jejunojejunostomy was unremarkable. The adhesion was sharply lysed from the anterior abdominal wall of the epigastrium. Next, intraoperative upper endoscopy was performed to confirm anastomotic disruption of the gastrojejunal anastomosis location. I went to the head of the bed. The scope was advanced into the gastric pouch where insufflation was lost from the anterior anastomotic disruption incorporating less than 10% of the lumen. Next I went back to the console for the repair and Miguel patch. Interrupted jejunal to gastric plication sutures using 3-0 Vicryl were placed at the 9:00, 12:00 and 3 o'clock position of the anastomosis. Well vascularized omentum was mobilized and place anteriorly over the repair. The omentum was sutured in place using 3-0 Vicryl along to the jejunal portion of the gastrojejunal anastomosis. I went back to the head of the bed to check for leak. Using normal saline solution and robotic suction puppet master, the real estate executive assistant irrigated the anastomotic repair. I advanced the upper endoscope to the anastomosis and beyond into the Cha limb. The Cha limb had completely insufflated without air leak. Next, methylene blue 1 mL to 250 mL solution was made. 40 mL of the blue solution was irrigated through the endoscope at the an astomosis. No methylene blue ink leak was identified confirming no leaks. Two confirmatory tests were performed confirming no leaks. This concluded the endoscopic portion of the case. At the right upper quadrant incision, round #19 Jose E-Macias drain was placed anterior over the repair. The drain was tacked to the skin using 2-0 nylon. The robot was undocked. All pneumoperitoneum, instruments were evacuated from the abdominal cavity. The incisions were reapproximated using 4-0 Monocryl in an interrupted subcuticular fashion. Please note along the trocar sites, local anesthetic was placed as a field block prior to insertion of all instruments. Jose E-Macias bulb was placed to suction. Exofin was applied to the skin. At the end of the procedure needle, sponge, and instrument count had been verified correct by the neurosurgical nurse. The patient was transferred to postanesthesia care unit in stable condition.
[2022-03-03] MEDS: 1: MVI, ADULT NO.4 WITH VIT K 10 ML, TRACE (CONC-1ML/DOSE) 1 ML in AMINO ACID 4.25%-D10W IV SCH ×6 (16:20→19:03)
[2022-03-03] MEDS: POTASSIUM CHLORIDE 20 MEQ in WATER FOR INJECTION 1 100ML.BAG IVPB SCH ×2 (16:20→17:45)
[2022-03-03] MEDS: HYDROmorphone 1 MG/ML 1 ML SYRINGE IVP PRN (17:49)
[2022-03-03] MEDS: ACETAMINOPHEN IV (For NPO) 1,000 MG in EMPTY BAG 1 BAG IVPB SCH (17:49)
[2022-03-04] MEDS: ACETAMINOPHEN IV (For NPO) 1,000 MG in EMPTY BAG 1 BAG IVPB SCH ×5 (00:43→23:49)
[2022-03-04] MEDS: THIAMINE 100 MG in SODIUM CHLORIDE 0.9% 50 ML IVPB SCH ×3 (01:20→23:01)
[2022-03-04] MEDS: PIPERACILLIN-TAZOBACTAM 3.375 GM in SODIUM CHLORIDE 0.9% 100 ML IVPB SCH ×3 (03:04→18:38)
[2022-03-04] MEDS: 1: MVI, ADULT NO.4 WITH VIT K 10 ML, TRACE (CONC-1ML/DOSE) 1 ML in AMINO ACID 4.25%-D10W IV SCH ×9 (03:53→16:41)
[2022-03-04] MEDS: SODIUM CHLORIDE 0.9% 1,000 ML IV SCH ×3 (07:32→23:44)
[2022-03-04] MEDS: PANTOPRAZOLE 40 MG/10 ML VIAL IV SCH ×2 (07:33→21:35)
--- NOTE | 2022-03-04 08:24 | P.PN ---
Progress Note - Text Progress Note Date: 03/04/22 Patient reevaluated following surgery to review the intraoperative findings. Family at bedside. on telephone. Review of adhesions creating persistent anastomotic disruption. JEFFREY drain decompressed. No methylene blue dye identified. Continue TPN. Start of liquids in 24-48 hours. Complete avoidance of Lamictal and Prozac due to adverse reaction of stomach ulcers.
[2022-03-04] MEDS ORDERED: METHYLENE BLUE 50 MG/10 ML AMPUL MISCELLANE STA (08:45)
[2022-03-04 09:28] LABS: Phosphorus 3.1 mg/dL (2.4-5.1)
[2022-03-04 09:43] LABS: African American GFR (CKD) 140.6 (60.0-200.0); Anion Gap 7.8 mmol/L (10.00-18.00); BUN/Creat Ratio 12.87 Ratio (12.00-20.00); Calcium 8.8 mg/dL (8.7-10.3); Carbon Dioxide 25.5 mmol/L (20.0-27.5); Non-African American GFR(CKD) 121.3 (60.0-200.0)
--- NOTE | 2022-03-04 13:01 | P.PN ---
Subjective Progress Note Date: 03/04/22 CHIEF COMPLAINT: Abdominal pain status post esophageal dilation HISTORY OF PRESENT ILLNESS: The patient is a 36-year-old who is status post esophageal dilation with anastomatic rupture. Patient is status post lysis of adhesions with features of persistent anastomotic disruption due to adhesions following esophageal dilation. She reports no further epigastric pain or bilateral shoulder pain. She is passing flatus prior to surgery. She describes new right upper quadrant abdominal pain which started today. ROS: No reports of nausea and vomiting. No fevers or chills. No new chest pain. No productive sputum PHYSICAL EXAM: VITAL SIGNS: Reviewed CONSTITUTIONAL: Well developed and in no acute distress. EYES: Conjuctivae without sclera icterus. Extraocular movements grossly intact. HEAD, EARS, NOSE, THROAT: Moist buccal mucosa. Head is atraumatic, normocephalic. Hears conversational speech. No nasal drainage. RESPIRATORY: Non-labored respirations and equal bilateral excursions. CARDIOVASCULAR: Palpable 2+ radial pulses. ABDOMEN: No peritonitis. MUSCULOSKELETAL: No gross deformity of the lower extremities noted. No clubbing. No cyanosis. SKIN: Good skin turgor. Well perfused. NEUROLOGIC: Cranial nerves II through XII grossly intact. No focal or lateralizing signs. PSYCH: Appropriate affect. Alert and oriented to person, place and time. CLINICAL LABS: Reviewed. Mary Alice reviewed ASSESSMENT: 1. Status post esophageal dilation for esophageal stricture 2. Dysphagia 3. Thiamine deficiency 4. Iron deficiency 5. Adverse reaction from home medications. PLAN: 1. At bedside, drink study done with methylene blue 1 mL in 150 mL water. Patient drank 60 mL of mixture without blue dye identified in JEFFREY drain or abdominal pain or dysphagia. 2. Patient describes new right upper quadrant abdominal pain. We'll obtain abdominal x-ray and ultrasound of the right upper quadrant. 3. Continue nothing by mouth except ice chips pending results of further studies 4. Continue TPN 5. Disposition pending tolerating liquid diet and liquid medications. Objective - Vital Signs Vital signs: Vital Signs Temp 98.5 F 03/04/22 07:50 Pulse 78 03/04/22 07:50 Resp 17 03/04/22 07:50 BP 140/86 03/04/22 07:50 Pulse Ox 95 03/04/22 07:50 FiO2 Intake & Output 03/03/22 03/04/22 03/04/22 18:59 06:59 18:59 Intake Total 1561 Output Total 5 Balance 1556 Weight 129.9 kg Intake: IV 550 Intake, IV Titration 1011 Amount Mvi, Adult No.4 with Vit 1011 K 10 ml Trace (Conc-1Ml/ Dose) 1 ml In Amino Acid 4.25%-D10w+Lytes*E* 1,000 ml @ 83.33 mls/hr IV [facility] Rx#: [id number] Oral 0 Output: Estimated Blood Loss 5 Other: Voiding Method Toilet # Voids 3 - Labs CBC & Chem 7: 03/03/22 03:59 03/04/22 05:51 Labs: Abnormal Lab Results - Last 24 Hours (Table) 03/04/22 Range/Units 05:51 Anion Gap 7.80 L (10.00-18.00) mmol/L BUN 7.0 L (9.0-27.0) mg/dL Creatinine 0.5 L (0.6-1.5) mg/dL Glucose 138 H (70-110) mg/dL
--- NOTE | 2022-03-04 14:11 | XR ---
EXAMINATION TYPE: XR abdomen 1V DATE OF EXAM: 03/04/2022 COMPARISON: 12/23/2021 INDICATION: Upper quadrant pain post surgery TECHNIQUE: Single view abdomen supine view FINDINGS: Nonspecific bowel gas is present. There appears to be within the colon. Drainage catheters in the mid abdomen to the left upper quadrant. Psoas margins are poorly visualized. No organomegaly is present. No mass effect is evident. IMPRESSION: 1. Nonspecific abdomen.
--- NOTE | 2022-03-04 15:12 | US ---
EXAMINATION TYPE: US gallbladder DATE OF EXAM: 03/04/2022 COMPARISON: NONE CLINICAL HISTORY: Right upper quadrant pain. TECHNIQUE: Multiple sonographic images of the right upper quadrant are obtained. FINDINGS: EXAM MEASUREMENTS: Liver Length: 15.7 cm Gallbladder Wall: 0.3 cm CBD: 0.2 cm Right Kidney: 10.5 x 5.0 x 4.8 cm LEHR OPERATOR NOTES: Technically difficult study limited views, morbidly obese patient. Pancreas: Obscured by bowel gas Liver: wnl Gallbladder: there appears to be shadowing gallstones Evidence for sonographic York's sign: no CBD: wnl Right Kidney: wnl IMPRESSION: Multiple gallstones. No dilated ducts. No discrete liver mass.
[2022-03-04] MEDS: HYDROmorphone 1 MG/ML 1 ML SYRINGE IVP PRN (16:40)
[2022-03-05] MEDS: PIPERACILLIN-TAZOBACTAM 3.375 GM in SODIUM CHLORIDE 0.9% 100 ML IVPB SCH ×3 (02:10→16:55)
[2022-03-05] MEDS: 1: MVI, ADULT NO.4 WITH VIT K 10 ML, TRACE (CONC-1ML/DOSE) 1 ML in AMINO ACID 4.25%-D10W IV SCH ×3 (05:02)
[2022-03-05] MEDS: ACETAMINOPHEN IV (For NPO) 1,000 MG in EMPTY BAG 1 BAG IVPB SCH ×3 (06:15→20:02)
[2022-03-05 06:51] LABS: ALT 54 U/L (4-34); AST 48 U/L (14-36); African American GFR (CKD) >90 (>60 ml/min/1.73 sqM); Albumin 3.5 g/dL (3.5-5.0); Albumin/Globulin Ratio 1.4; Alkaline Phosphatase 76 U/L (38-126); Anion Gap 6 mmol/L; Blood Urea Nitrogen 11 mg/dL (7-17); Calcium 8.4 mg/dL (8.4-10.2); Carbon Dioxide 27 mmol/L (22-30); Chloride 108 mmol/L (98-107); Globulin 2.5 g/dL; Glucose 101 mg/dL (74-99); Magnesium 1.9 mg/dL (1.6-2.3); Non-African American GFR(CKD) >90 (>60 ml/min/1.73 sqM); Phosphorus 5.1 mg/dL (2.5-4.5); Potassium 3.7 mmol/L (3.5-5.1); Sodium 141 mmol/L (137-145); Total Bilirubin 0.4 mg/dL (0.2-1.3)
[2022-03-05] MEDS: SODIUM CHLORIDE 0.9% 1,000 ML IV SCH ×3 (08:48→20:07)
[2022-03-05] MEDS: THIAMINE 100 MG in SODIUM CHLORIDE 0.9% 50 ML IVPB SCH ×2 (09:10→22:25)
[2022-03-05] MEDS: PANTOPRAZOLE 40 MG/10 ML VIAL IV SCH ×2 (09:11→22:02)
--- NOTE | 2022-03-05 12:39 | P.PN ---
Subjective Progress Note Date: 03/05/22 CHIEF COMPLAINT: Abdominal pain status post esophageal dilation HISTORY OF PRESENT ILLNESS: The patient is a 36-year-old who is status post esophageal dilation with anastomatic rupture. She is status post lysis of adhesions 03/02/2022. No further shoulder pain. No further epigastric pain. She passed her bedside leak test without any blue dye in JEFFREY drain. Yesterday, patient reported new right upper quadrant abdominal pain. Additional diagnostic studies were obtained. She reports her right upper quadrant pain is only exacerbated with movement more consistent with a JEFFREY drain. ROS: No reports of nausea and vomiting. No fevers or chills. PHYSICAL EXAM: VITAL SIGNS: Reviewed CONSTITUTIONAL: Well developed and in no acute distress. EYES: Conjuctivae without sclera icterus. Extraocular movements grossly intact. HEAD, EARS, NOSE, THROAT: Moist buccal mucosa. Head is atraumatic, normoc ephalic. Hears conversational speech. No nasal drainage. RESPIRATORY: Non-labored respirations and equal bilateral excursions. CARDIOVASCULAR: Palpable 2+ radial pulses. ABDOMEN: JEFFREY serosanguineous. JEFFREY site clean dry and intact. No peritonitis. MUSCULOSKELETAL: No gross deformity of the lower extremities noted. No clubbing. No cyanosis. SKIN: Good skin turgor. Well perfused. NEUROLOGIC: Cranial nerves II through XII grossly intact. No focal or lateralizing signs. PSYCH: Appropriate affect. Alert and oriented to person, place and time. CLINICAL LABS: Reviewed. CMP demonstrates elevation of liver enzymes. STUDIES: Ultrasound of gallbladder and apparent reviewed demonstrating gallstones. Gallbladder wall thickness 0.3 cm. REPORT: Ultrasound report confirms gallstones without cholecystitis or York sign. ASSESSMENT: 1. Status post esophageal dilation for gastrojejunal stricture 2. Dysphagia 3. Thiamine deficiency 4. Iron deficiency 5. Adverse reaction from home medications Lamictal and Prozac for stomach ulcers 6. Gastrojejunal anastomotic disruption 7. Gallstones, new 8. Prolonged nothing by mouth status with TPN 9. Right upper quadrant abdominal pain PLAN: 1. She is over 48 hours from her procedure and will start bariatric clear liquid diet. She has passed intraoperatively test 2 including bedside leak test yesterday. 2. Weaning TPN 3. Start oral medications including Carafate and Protonix 4. Avoiding textured foods such as capsule granules, cream of wheat described. 5. Transition from bariatric clear liquid to full liquid diet 24-48 hours pending clinical course 6. Repeat CBC and CMP Objective - Vital Signs Vital signs: Vital Signs Temp 98.3 F 03/05/22 07:53 Pulse 65 03/05/22 07:53 Resp 18 03/05/22 08:00 BP 130/82 03/05/22 07:53 Pulse Ox 97 03/05/22 07:53 FiO2 Intake & Output 03/04/22 03/05/22 03/05/22 18:59 06:59 18:59 Intake Total 2708.25 1011 Output Total 20 Balance 2708.25 991 Intake: Intake, IV Titration 2708.25 1011 Amount ACETAMINOPHEN IV (For NPO 1500 ) 1,000 mg In Empty Bag 1 bag @ 400 mls/hr IVPB Q6HR [facility] Rx#:[id number] Amino Acid 4.25%-D10w+ 208.25 Lytes*E* 1,000 ml @ 83.33 mls/hr IV .BY DURATION [facility] Rx#:[id number] Mvi, Adult No.4 with Vit 1000 1011 K 10 ml Trace (Conc-1Ml/ Dose) 1 ml In Amino Acid 4.25%-D10w+Lytes*E* 1,000 ml @ 83.33 mls/hr IV .BY DURATION [facility] Rx#: [id number] Output: Drainage 20 Abdomen 20 Other: Voiding Method Toilet # Voids 4 2 # Bowel Movements 0 - Labs CBC & Chem 7: 03/03/22 03:59 03/05/22 05:44 Labs: Abnormal Lab Results - Last 24 Hours (Table) 03/05/22 Range/Units 05:44 Chloride 108 H (98-107) mmol/L Glucose 101 H (74-99) mg/dL Phosphorus 5.1 H (2.5-4.5) mg/dL AST 48 H (14-36) U/L ALT 54 H (4-34) U/L Total Protein 6.0 L (6.3-8.2) g/dL
[2022-03-05] MEDS: 1: MVI, ADULT NO.4 WITH VIT K 10 ML, TRACE (CONC-1ML/DOSE) 1 ML, SODIUM ACETATE 30 MEQ, IV SCH ×7 (16:55)
[2022-03-05] MEDS: SUCRALFATE 1 GM TAB PO SCH (16:55)
[2022-03-06] MEDS: ACETAMINOPHEN IV (For NPO) 1,000 MG in EMPTY BAG 1 BAG IVPB SCH ×3 (00:09→12:18)
[2022-03-06] MEDS: PIPERACILLIN-TAZOBACTAM 3.375 GM in SODIUM CHLORIDE 0.9% 100 ML IVPB SCH ×2 (02:46→12:23)
[2022-03-06] MEDS: 1: MVI, ADULT NO.4 WITH VIT K 10 ML, TRACE (CONC-1ML/DOSE) 1 ML, SODIUM ACETATE 30 MEQ, IV SCH ×7 (05:25)
[2022-03-06] MEDS: SODIUM CHLORIDE 0.9% 1,000 ML IV SCH ×2 (06:20→19:45)
[2022-03-06 07:06] LABS: ALT 47 U/L (4-34); AST 29 U/L (14-36); African American GFR (CKD) >90 (>60 ml/min/1.73 sqM); Albumin 3.3 g/dL (3.5-5.0); Albumin/Globulin Ratio 1.3; Alkaline Phosphatase 71 U/L (38-126); Anion Gap 6 mmol/L; Blood Urea Nitrogen 12 mg/dL (7-17); Calcium 8.2 mg/dL (8.4-10.2); Carbon Dioxide 26 mmol/L (22-30); Chloride 107 mmol/L (98-107); Globulin 2.6 g/dL; Glucose 92 mg/dL (74-99); Magnesium 1.8 mg/dL (1.6-2.3); Non-African American GFR(CKD) >90 (>60 ml/min/1.73 sqM); Phosphorus 4.9 mg/dL (2.5-4.5); Potassium 3.7 mmol/L (3.5-5.1); Sodium 139 mmol/L (137-145); Total Bilirubin 0.5 mg/dL (0.2-1.3); Total Protein 5.9 g/dL (6.3-8.2)
[2022-03-06] MEDS: PANTOPRAZOLE 40 MG/10 ML VIAL IV SCH (07:52)
[2022-03-06] MEDS: ENOXAPARIN 40 MG/0.4 ML SYRINGE SQ SCH (07:53)
[2022-03-06] MEDS: SUCRALFATE 1 GM TAB PO SCH ×3 (07:53→16:34)
[2022-03-06 09:21] LABS: Basophils # (A) 0.04 X 10*3/uL (0.00-0.10); Eosinophils % (A) 2.6 %; HCT 36.1 % (37.2-46.3); HGB 11.1 g/dL (12.0-15.0); Immature Grans, Automated 0.3 %; Lymphocytes # (A) 1.71 X 10*3/uL (0.90-5.00); Lymphocytes % (A) 43.6 %; MCH 26.7 pg (27.0-32.0); MCHC 30.7 g/dL (32.0-37.0); Mean Platelet Volume 10.2 fL (9.5-12.2); Monocytes # (A) 0.32 X 10*3/uL (0.20-1.00); Monocytes % (A) 8.2 %; NRBC Per 100 WBC 0 /100 WBCS (0.0-0.0); Neutrophils # (A) 1.74 X 10*3/uL (1.80-7.70); Neutrophils % (A) 44.3 %; Platelet Count 113 X 10*3/uL (140-440); RBC 4.15 X 10*6/uL (4.10-5.20); RDW 16.7 % (11.5-14.5); WBC 3.92 X 10*3/uL (4.50-10.00)
[2022-03-06] MEDS: THIAMINE 100 MG in SODIUM CHLORIDE 0.9% 50 ML IVPB SCH ×2 (11:06→20:11)
--- NOTE | 2022-03-06 14:15 | P.PN ---
Subjective Progress Note Date: 03/06/22 CHIEF COMPLAINT: Abdominal pain status post esophageal dilation HISTORY OF PRESENT ILLNESS: The patient is a 36-year-old who is status post esophageal dilation with anastomatic rupture. She is status post lysis of adhesions and repair gastrojejunal anastomosis perforation with omental nilay patch. on 03/03/22. Patient is sitting in bedside chair. She reports that her pain is controlled. She denies any nausea or vomiting. She is having flatus. She denies any difficulty swallowing. She had 40 mL of serosanguineous output through the JEFFREY drain. The bandage around the JEFFREY drain site has been saturated with serosanguineous fluid. She is currently on TPN for nutrition support. She was able to tolerate bariatric clear liquids. Afebrile. WBC 3.9 to Hgb 11.1 platelets 113 7 is 139 potassium 3.7 creatinine 0.61 and easy 1.8 total bili 0.5 AST 29 ALT 47 alk phos 71 PHYSICAL EXAM: VITAL SIGNS: Reviewed GENERAL: Well-developed in no acute distress. HEENT: No sclera icterus. Extraocular movements grossly intact. Moist buccal mucosa. Head is atraumatic, normocephalic. Hears conversational speech. No nasal drainage. NECK: Supple without lymphadenopathy. CHEST: Non-labored respirations and equal bilateral excursions. CARDIOVASCULAR: Palpable 2+ radial pulses. ABDOMEN: Soft. Nondistended. Incision sites clean dry and intact. A bandage is saturated with serosanguineous fluid noted on the bandage of the JEFFREY drain site. MUSCULOSKELETAL: No clubbing or cyanosis. NEUROLOGIC: No focal or lateralizing signs. Cranial nerves II through XII grossly intact. PSYCH: Appropriate affect. Alert and oriented to person, place and time. SKIN: Well perfused. Good skin turgor. ASSESSMENT: 1. Pneumoperitoneum 2. Anastomotic disruption at gastrojejunal anastomosis 3. Morbid obesity due to excess calories, BMI 47.7 4. Depressive disorder 5. History of gastric bypass 6. Gastrojejunal ulcer with stricture and perforation 7. Epiploic appendagitis 1. Status post esophageal dilation for gastrojejunal stricture 2. Dysphagia 3. Thiamine deficiency 4. Iron deficiency 5. Adverse reaction from home medications Lamictal and Prozac for stomach ulcers 6. Gastrojejunal anastomotic disruption 7. Gallstones, new 8. Prolonged nothing by mouth status with TPN 9. Right upper quadrant abdominal pain PLAN: -Wean patient off of TPN -Continue Bariatric Full liquid diet -We will switch patient to oral medications. Discontinue IV Protonix and start her on Protonix 40 mg by mouth twice a day tablets to be crushed -Start Augmentin liquid solution twice a day -Tylenol PRN pain -Change optifoam dressing at JEFFREY drain site -Encouraged patient to ambulate -Anticipate discharge tomorrow -Continue DVT prophylaxis Lovenox Physician Manager Managed [employer] note has been reviewed by physician. Signing provider agrees with the documented findings, assessment, and plan of care. CHIEF COMPLAINT: Abdominal pain status post esophageal dilation HISTORY OF PRESENT ILLNESS: The patient is a 36-year-old who is status post esophageal dilation with anastomatic rupture. She is status post lysis of adhesions 03/02/2022. She is tolerating bariatric clear liquid diet. No further epigastric or shoulder pain. ROS: No reports of nausea and vomiting. No fevers or chills. PHYSICAL EXAM: VITAL SIGNS: Reviewed CONSTITUTIONAL: Well developed and in no acute distress. EYES: Conjuctivae without sclera icterus. Extraocular movements grossly intact. HEAD, EARS, NOSE, THROAT: Moist buccal mucosa. Head is atraumatic, normocephalic. Hears conversational speech. No nasal drainage. RESPIRATORY: Non-labored respirations and equal bilateral excursions. CARDIOVASCULAR: Palpable 2+ radial pulses. ABDOMEN: JEFFREY serosanguineous. No peritonitis MUSCULOSKELETAL: No gross deformity of the lower extremities noted. No clubbing. No cyanosis. SKIN: Good skin turgor. Well perfused. NEUROLOGIC: Cranial nerves II through XII grossly intact. No focal or lateralizing signs. PSYCH: Appropriate affect. Alert and oriented to person, place and time. CLINICAL LABS: Reviewed. CMP demonstrates decreased elevation of liver enzymes. WBC normal ASSESSMENT: 1. Status post esophageal dilation for gastrojejunal stricture 2. Dysphagia 3. Thiamine deficiency 4. Iron deficiency 5. Adverse reaction from home medications Lamictal and Prozac for stomach ulcers 6. Gastrojejunal anastomotic disruption 7. Gallstones, new 8. Prolonged nothing by mouth status with TPN 9. Right upper quadrant abdominal pain PLAN: 1. Advance to bariatric full liquid diet 2. Transition all medications to orals. 3. Disposition 24 hours after weaning TPN 4. Discharge home with JEFFREY drain 5. Conservative management for gallstones Objective - Vital Signs Vital signs: Vital Signs Temp 98.5 F 03/06/22 07:32 Pulse 83 03/06/22 08:00 Resp 18 03/06/22 08:00 BP 130/84 03/06/22 07:32 Pulse Ox 98 03/06/22 07:32 FiO2 Intake & Output 03/05/22 03/06/22 03/06/22 18:59 06:59 18:59 Intake Total 120 Output Total 40 20 Balance 80 -20 Intake: Oral 120 Output: Drainage 40 20 Abdomen 40 20 Other: Voiding Method Toilet Toilet Toilet # Voids 3 - Labs CBC & Chem 7: 03/06/22 06:33 03/06/22 06:33 Labs: Abnormal Lab Results - Last 24 Hours (Table) 03/06/22 03/06/22 Range/Units 06:33 06:33 WBC 3.92 L (4.50-10.00) X 10*3/uL Hgb 11.1 L (12.0-15.0) g/dL Hct 36.1 L (37.2-46.3) % MCH 26.7 L (27.0-32.0) pg MCHC 30.7 L (32.0-37.0) g/dL RDW 16.7 H (11.5-14.5) % Plt Count 113 L (140-440) X 10*3/uL Neutrophils # 1.74 L (1.80-7.70) X 10*3/uL Calcium 8.2 L (8.4-10.2) mg/dL Phosphorus 4.9 H (2.5-4.5) mg/dL ALT 47 H (4-34) U/L Total Protein 5.9 L (6.3-8.2) g/dL Albumin 3.3 L (3.5-5.0) g/dL
[2022-03-06] MEDS: PANTOPRAZOLE 40 MG TABLET PO SCH (16:42)
[2022-03-06] MEDS ORDERED: ACETAMINOPHEN ORAL SUSP 160 MG/5 ML CUP PO PRN (18:00)
[2022-03-06] MEDS: AMOXIC-POT CLAV 200-28.5MG/5ML 100 ML BOTTLE PO SCH (20:12)
[2022-03-07] MEDS: SODIUM CHLORIDE 0.9% 1,000 ML IV SCH ×2 (01:22→13:02)
[2022-03-07] MEDS: ENOXAPARIN 40 MG/0.4 ML SYRINGE SQ SCH (07:26)
[2022-03-07] MEDS: AMOXIC-POT CLAV 200-28.5MG/5ML 100 ML BOTTLE PO SCH (07:26)
[2022-03-07] MEDS: PANTOPRAZOLE 40 MG TABLET PO SCH (07:26)
[2022-03-07] MEDS: THIAMINE 100 MG in SODIUM CHLORIDE 0.9% 50 ML IVPB SCH (07:26)
[2022-03-07] MEDS ORDERED: ACETAMINOPHEN ORAL SUSP (PEDS) 3,840 MG/120 ML BOTTLE PO PRN (07:27)
[2022-03-07 07:32] VITALS: BP 115/71; PULSE 78; RESP 16; TEMP 98.8
[2022-03-07] MEDS: SUCRALFATE 1 GM TAB PO SCH ×2 (07:59→13:02)
--- NOTE | 2022-03-07 14:09 | P.DS ---
Providers Date of admission: 02/27/22 09:26 Expected date of discharge: 03/07/22 Attending physician: Taya Sharp Primary care physician: Stephan Mcclain Hospital Course: Discharge diagnosis 1. Status post esophageal dilation for gastrojejunal stricture 2. Dysphagia 3. Thiamine deficiency 4. Iron deficiency 5. Adverse reaction from home medications Lamictal and Prozac for stomach ulcers 6. Gastrojejunal anastomotic disruption 7. Gallstones, new 8. Prolonged nothing by mouth status with TPN 9. Right upper quadrant abdominal pain Hospital course This is 36-year-old female history of dysphagia due to gastrojejunal stricture. She is status post EGD with balloon dilatation on 02/27/2022. After procedure patient developed chest pain that radiated into the bilateral shoulders. Chest x-ray was completed didn't monitoring free air underneath right diaphragm consistent with perforation. Patient was made nothing by mouth. She started on TPN for nutrition support. She also has been receiving antibiotics. She rec eived treatment for thiamine and iron deficiency. Patient's symptoms and had shown improvement. However, repeat chest x-ray showed persistent free air despite clinical improvement. Patient was then taken to the OR on 03/03/2022 for Robotic-assisted da Gabbi Xi laparoscopic with extensive lysis of adhesions and repair of gastrojejunal anastomosis perforation with omental nilay patch. Pain is controlled. She was started on a bariatric clear liquid diet and advanced to full liquids. She was able to tolerate her oral medications and diet. Patient did tell her follow-up right upper quadrant abdominal pain and abdominal ultrasound had shown evidence of multiple gallstones. Patient's pain is controlled. She is tolerating diet. She's afebrile. She is having flatus and bowel movements. She is ambulating. She is stable for discharge. Lamictal and Prozac discontinued due to adverse reaction of stomach ulcers. Physician Forging Engineer note has been reviewed by physician. Signing provider agrees with the documented findings, assessment, and plan of care. POSTOPERATIVE DIAGNOSES: 1. Pneumoperitoneum 2. Anastomotic disruption at gastrojejunal anastomosis 3. Morbid obesity due to excess calories, BMI 47.7 4. Depressive disorder 5. History of gastric bypass 6. Gastrojejunal ulcer with stricture and perforation 7. Epiploic appendagitis 8. Gallstones HISTORY OF PRESENT ILLNESS: The patient is a 36-year-old who is status post esophageal dilation for gastrojejunal stricture. She had resultant anastomatic rupture. Patient was managed conservatively with IV antibiotics, strict nothing by mouth status and TPN. Repeat chest x-rays demonstrated persistent pneumoperitoneum resulting in surgical intervention. Lysis of adhesions with repair of gastrojejunal disruption was performed. Postoperatively, symptoms are improving. Bedside leak test including intraoperative leak tests were performed. Patient was tolerating full liquid diet. She reported transient rig ht upper quadrant abdominal pain with findings of incidental gallstones. Clinically, her symptoms improved. Patient remained nontoxic. She was tolerating oral medications. ROS: No reports of nausea and vomiting. No fevers or chills. PHYSICAL EXAM: VITAL SIGNS: Reviewed CONSTITUTIONAL: Well developed and in no acute distress. EYES: Conjuctivae without sclera icterus. Extraocular movements grossly intact. HEAD, EARS, NOSE, THROAT: Moist buccal mucosa. Head is atraumatic, normocephalic. Hears conversational speech. No nasal drainage. RESPIRATORY: Non-labored respirations and equal bilateral excursions. CARDIOVASCULAR: Palpable 2+ radial pulses. ABDOMEN: JEFFREY serosanguineous. No peritonitis MUSCULOSKELETAL: No gross deformity of the lower extremities noted. No clubbing. No cyanosis. SKIN: Good skin turgor. Well perfused. NEUROLOGIC: Cranial nerves II through XII grossly intact. No focal or lateralizing signs. PSYCH: Appropriate affect. Alert and oriented to person, place and time. ASSESSMENT: 1. Status post esophageal dilation for gastrojejunal stricture 2. Dysphagia 3. Thiamine deficiency 4. Iron deficiency 5. Adverse reaction from home medications Lamictal and Prozac for stomach ulcers 6. Gastrojejunal anastomotic disruption 7. Gallstones, new 8. Prolonged nothing by mouth status with TPN 9. Right upper quadrant abdominal pain PLAN: 1. Discharge home with JEFFREY drain Vital Signs Temp 98.8 F 03/07/22 07:31 Pulse 78 03/07/22 07:31 Resp 16 03/07/22 07:31 BP 115/71 03/07/22 07:31 Pulse Ox 97 03/07/22 07:31 FiO2 Intake & Output 03/07/22 03/07/22 03/08/22 06:59 18:59 06:59 Intake Total 590 Output Total 10 Balance 590 -10 Intake: Oral 590 Output: Drainage 10 Abdomen 10 Other: Voiding Method Toilet # Voids 1 Laboratory Last Values WBC 3.92 X 10*3/uL (4.50-10.00) L 03/06/22 06:33 RBC 4.15 X 10*6/uL (4.10-5.20) 03/06/22 06:33 Hgb 11.1 g/dL (12.0-15.0) L 03/06/22 06:33 Hct 36.1 % (37.2-46.3) L 03/06/22 06:33 MCV 87.0 fL (80.0-97.0) 03/06/22 06:33 MCH 26.7 pg (27.0-32.0) L 03/06/22 06:33 MCHC 30.7 g/dL (32.0-37.0) L 03/06/22 06:33 RDW 16.7 % (11.5-14.5) H 03/06/22 06:33 Plt Count 113 X 10*3/uL (140-440) L 03/06/22 06:33 MPV 10.2 fL (9.5-12.2) 03/06/22 06:33 Immature Gran % (Auto) 0.3 % 03/06/22 06:33 Absolute Nucleated RBC 0 X 10*3/uL (0.00-0.00) 03/06/22 06:33 Neutrophils % 44.3 % 03/06/22 06:33 Lymphocytes % 43.6 % 03/06/22 06:33 Monocytes % 8.2 % 03/06/22 06:33 Eosinophils % 2.6 % 03/06/22 06:33 Basophils % 1.0 % 03/06/22 06:33 Immature Gran # 0.01 X 10*3/uL (0.00-0.04) 03/06/22 06:33 Neutrophils # 1.74 X 10*3/uL (1.80-7.70) L 03/06/22 06:33 Lymphocytes # 1.71 X 10*3/uL (0.90-5.00) 03/06/22 06:33 Monocytes # 0.32 X 10*3/uL (0.20-1.00) 03/06/22 06:33 Eosinophils # 0.10 X 10*3/uL (0.04-0.35) 03/06/22 06:33 Basophils # 0.04 X 10*3/uL (0.00-0.10) 03/06/22 06:33 NRBC/100 WBC Diff 0 /100 WBCS (0.0-0.0) 03/06/22 06:33 Hypochromasia Slight 02/28/22 10:45 Anisocytosis Slight 02/28/22 10:45 PT 11.6 sec (9.0-12.0) 03/01/22 12:46 INR 1.1 (<1.2) 03/01/22 12:46 Sodium 139 mmol/L (137-145) 03/06/22 06:33 Potassium 3.7 mmol/L (3.5-5.1) 03/06/22 06:33 Chloride 107 mmol/L (98-107) 03/06/22 06:33 Carbon Dioxide 26 mmol/L (22-30) 03/06/22 06:33 Anion Gap 6 mmol/L 03/06/22 06:33 BUN 12 mg/dL (7-17) 03/06/22 06:33 Creatinine 0.61 mg/dL (0.52-1.04) 03/06/22 06:33 Est GFR (CKD-EPI)AfAm >90 (>60 ml/min/1.73 sqM) 03/06/22 06:33 Est GFR (CKD-EPI)NonAf >90 (>60 ml/min/1.73 sqM) 03/06/22 06:33 BUN/Creatinine Ratio 12.87 Ratio (12.00-20.00) 03/04/22 05:51 Glucose 92 mg/dL (74-99) 03/06/22 06:33 Calcium 8.2 mg/dL (8.4-10.2) L 03/06/22 06:33 Ionized Calcium Irma 4.8 mg/dL (4.5-5.3) 03/02/22 04:38 Phosphorus 4.9 mg/dL (2.5-4.5) H 03/06/22 06:33 Magnesium 1.8 mg/dL (1.6-2.3) 03/06/22 06:33 Total Bilirubin 0.5 mg/dL (0.2-1.3) 03/06/22 06:33 AST 29 U/L (14-36) 03/06/22 06:33 ALT 47 U/L (4-34) H 03/06/22 06:33 Alkaline Phosphatase 71 U/L (38-126) 03/06/22 06:33 Total Protein 5.9 g/dL (6.3-8.2) L 03/06/22 06:33 Albumin 3.3 g/dL (3.5-5.0) L 03/06/22 06:33 Globulin 2.6 g/dL 03/06/22 06:33 Albumin/Globulin Ratio 1.3 03/06/22 06:33 Triglycerides 128.00 mg/dL (0.00-149.00) 03/01/22 16:45 Procedures: OPERATION: 1. Robotic-assisted da Gabbi Xi laparoscopic with extensive lysis of adhesions 2. Repair of gastrojejunal anastomosis perforation with omental nilay patch 3. Intraoperative esophagogastrojejunoscopy 4. Placement of #19 Jose E-Macias drain, epigastrium ESTIMATED BLOOD LOSS: 5 mL. SPECIMENS REMOVED: None. COMPLICATIONS: None. OPERATIVE FINDINGS: 1. Anterior abdominal wall adhesion creating open flap of gastrojejunal anastomotic disruption 2. No intra-abdominal incisional hernias 3. Epiploic appendagitis left lower quadrant Patient Condition at Discharge: Stable Plan - Discharge Summary New Discharge Prescriptions: New Sucralfate [Carafate] 1 gm PO TID #90 tablet Pantoprazole [Protonix] 40 mg PO BID #60 tab Acetaminophen Oral Susp [Tylenol] 1,000 mg PO Q6H #400 ml Amoxic-Pot Clav 200-28.5MG/5Ml [Augmentin 200-28.5 mg/5 ml Susp] 20 ml PO Q12HR 10 Days #400 ml Discontinued Omeprazole [PriLOSEC] 40 mg PO BID #60 cap Sucralfate [Carafate] 1 gm PO BID #60 tablet lamoTRIgine [LaMICtal] 50 mg PO HS FLUoxetine HCL [PROzac] 20 mg PO DAILY Discharge Medication List Pantoprazole [Protonix] 40 mg PO BID #60 tab 03/06/22 [Rx] Sucralfate [Carafate] 1 gm PO TID #90 tablet 03/06/22 [Rx] Acetaminophen Oral Susp [Tylenol] 1,000 mg PO Q6H #400 ml 03/07/22 [Rx] Amoxic-Pot Clav 200-28.5MG/5Ml [Augmentin 200-28.5 mg/5 ml Susp] 20 ml PO Q12HR 10 Days #400 ml 03/07/22 [Rx] Follow up [facility]ment(s[facility] [place] [facility] 2:30 pm Patient Instructions/Handouts: *Surgery [facility] - (Anesthesia) Endoscopy Discharge Instructions, Jose E-Macias Drain Care (DC), Esophageal Dilation (DC) Activity/Diet/Wound Care/Special Instructions: Full liquid diet. Avoid granules such as cream of wheat or capsule medications. Continue JEFFREY drain measurements. Use blue colored foods to check for leaks. Wear abdominal binder at all times for comfort. No lifting over 4 pounds in 4 weeks You May shower. No bath tub soaks for two weeks Use Tylenol scheduled for the next 24-48 hours for best pain relief. Use ice along incisions for the today to prevent swelling. Continue bariatric full liquid diet Start pured diet on 03/13/2022 Keep a log of JEFFREY drain output and bring with you to your follow-up appointment Milk/strip drains 2-3 times a day Discharge Disposition: HOME SELF-CARE
== END 2022-03-07 15:37 | disposition home or self-care (01) | DRG 326 ==
LOC: ORWHC2ENDO 07:23 → 4SSUR 08:39 → ORWHC2ENDO 09:26
PROVIDERS: ADMIT Surgery Plastic and Reconstructive Surgery; ATTEND Surgery Plastic and Reconstructive Surgery
PROC: 0D7A8ZZ Dilation of Jejunum, Via Natural or Artificial Opening Endoscopic (ICD-10-PCS; 2022-02-27)
PROC: 0D768ZZ Dilation of Stomach, Via Natural or Artificial Opening Endoscopic (ICD-10-PCS; 2022-02-27)
PROC: 02HV33Z Insertion of Infusion Device into Superior Vena Cava, Percutaneous Approach (ICD-10-PCS; 2022-03-01)
PROC: 3E0436Z Introduction of Nutritional Substance into Central Vein, Percutaneous Approach (ICD-10-PCS; 2022-03-02)
PROC: 0DN64ZZ Release Stomach, Percutaneous Endoscopic Approach (ICD-10-PCS; principal; 2022-03-03 08:30)
PROC: 8E0W4CZ Robotic Assisted Procedure of Trunk Region, Percutaneous Endoscopic Approach (ICD-10-PCS; principal; 2022-03-03 08:30)
PROC: 0DJ08ZZ Inspection of Upper Intestinal Tract, Via Natural or Artificial Opening Endoscopic (ICD-10-PCS; principal; 2022-03-03 08:30)
PROC: 0DU647Z Supplement Stomach with Autologous Tissue Substitute, Percutaneous Endoscopic Approach (ICD-10-PCS; principal; 2022-03-03 08:30)
DX: K91.89 Other postprocedural complications and disorders of digestive system (principal); K28.5 Chronic or unspecified gastrojejunal ulcer with perforation; E51.9 Thiamine deficiency, unspecified; Z68.42 Body mass index [BMI] 45.0-49.9, adult; K66.8 Other specified disorders of peritoneum; K22.2 Esophageal obstruction; E66.01 Morbid (severe) obesity due to excess calories; R13.10 Dysphagia, unspecified; D50.9 Iron deficiency anemia, unspecified; T42.6X5A Adverse effect of other antiepileptic and sedative-hypnotic drugs, initial encounter; T43.225A Adverse effect of selective serotonin reuptake inhibitors, initial encounter; F32.A Depression, unspecified; F41.9 Anxiety disorder, unspecified; K66.0 Peritoneal adhesions (postprocedural) (postinfection); K21.9 Gastro-esophageal reflux disease without esophagitis; K63.89 Other specified diseases of intestine; K80.20 Calculus of gallbladder without cholecystitis without obstruction; M15.9 Polyosteoarthritis, unspecified; Z79.899 Other long term (current) drug therapy; Z87.891 Personal history of nicotine dependence; Z71.3 Dietary counseling and surveillance; Y92.009 Unspecified place in unspecified non-institutional (private) residence as the place of occurrence of the external cause; Y83.2 Surgical operation with anastomosis, bypass or graft as the cause of abnormal reaction of the patient, or of later complication, without mention of misadventure at the time of the procedure; Y92.530 Ambulatory surgery center as the place of occurrence of the external cause; Z80.9 Family history of malignant neoplasm, unspecified; Z83.1 Family history of other infectious and parasitic diseases
CPT/HCPCS: 36573; 43245; 71045; 71046; 74018; 76705; 80048; 80053; 81025; 82330; 83735; 84100; 84478; 85025; 85610

== ENCOUNTER → 2022-03-15 | Outpatient (CLI) | payer BC ==
[2022-03-15 11:12] VITALS: BP 124/93; PULSE 99; TEMP 98.3; BMI 43.3
--- NOTE | 2022-03-15 12:40 | P.BASOAP ---
Subjective Progress Note Date: 03/15/22 She denies any further dysphagia. JEFFREY drain discontinued at bedside. No blue color noted along her JEFFREY drain. Patient reports right upper quadrant pain consistent with movement of her JEFFREY. She tolerated, she is without increased abdominal pain. Ground and diet described. Maybe pured diet. May start v itamins. We'll obtain bariatric labs. Follow-up in 4 weeks. In the interim, avoid antidepressants was increased risk for stomach ulcers in the interim. Plan for restarting her medications in 2 weeks' reviewed. Objective - Vital Signs Vital signs: Vital Signs Temp 98.3 F 03/15/22 11:10 Pulse 99 03/15/22 11:10 Resp BP 124/93 03/15/22 11:10 Pulse Ox FiO2 Intake & Output 03/14/22 03/15/22 03/15/22 18:59 06:59 18:59 Weight 123.604 kg Assessment/Plan Plan: Date: 03/15/22 Initial Weight: 153.314 kg Initial BMI: 53.7 Current Weight: 123.604 kg Current BMI: 43.3 Type of Surgery: Total Volume in Band: Previous Volume: Volume Removed: Volume Added: Band Size:
[2022-03-15 12:57] LABS: Partial Thromboplastin Time 28.4 sec (22.0-30.0); Prothrombin Time 11.3 sec (9.0-12.0)
[2022-03-15 17:45] LABS: HCT 40.6 % (37.2-46.3); HGB 13.1 g/dL (12.0-15.0); MCH 27.3 pg (27.0-32.0); MCHC 32.3 g/dL (32.0-37.0); MCV 84.6 fL (80.0-97.0); Mean Platelet Volume 10.6 fL (9.5-12.2); NRBC Per 100 WBC 0 /100 WBCS (0.0-0.0); Platelet Count 172 X 10*3/uL (140-440); RDW 15.9 % (11.5-14.5); WBC 7.11 X 10*3/uL (4.50-10.00)
[2022-03-15 18:04] LABS: % Iron Saturation 18.47 (12.00-45.00); ALT 26 U/L (8-44); AST 17 U/L (13-35); African American GFR (CKD) 135.5 (60.0-200.0); Albumin 4.5 g/dL (3.8-4.9); Alkaline Phosphatase 91 U/L (41-126); BUN/Creat Ratio 25.62 Ratio (12.00-20.00); Blood Urea Nitrogen 15.5 mg/dL (9.0-27.0); Calcium 9.6 mg/dL (8.7-10.3); Carbon Dioxide 21.4 mmol/L (20.0-27.5); Chloride 103 mmol/L (96-109); Globulin 3.2 g/dL (1.6-3.3); Glucose 91 mg/dL (70-110); Iron 49 ug/dL (50-170); Magnesium 1.9 mg/dL (1.5-2.4); Non-African American GFR(CKD) 116.9 (60.0-200.0); Phosphorus 3.4 mg/dL (2.4-5.1); Potassium 4.4 mmol/L (3.5-5.5); Sodium 140 mmol/L (135-145); Total Iron Binding Capacity 267 ug/dL (228-460); Total Protein 7.7 g/dL (6.2-8.2)
[2022-03-15 19:05] LABS: LDL Cholesterol,Calculated 128.2 mg/dL (0.0-131.0); Prealbumin 20.7 mg/dL (18.0-42.0)
[2022-03-16 12:14] LABS: Zinc, Serum 78 ug/dL (60-130)
== END | disposition home or self-care (01) ==
LOC: BARWHC3 10:45
PROVIDERS: ATTEND Surgery Plastic and Reconstructive Surgery
DX: E66.01 Morbid (severe) obesity due to excess calories (principal); D50.8 Other iron deficiency anemias; D50.9 Iron deficiency anemia, unspecified; K91.2 Postsurgical malabsorption, not elsewhere classified; E44.0 Moderate protein-calorie malnutrition; E44.1 Mild protein-calorie malnutrition; E45 Retarded development following protein-calorie malnutrition; E46 Unspecified protein-calorie malnutrition; E55.9 Vitamin D deficiency, unspecified; K74.1 Hepatic sclerosis; N19 Unspecified kidney failure; T56.894A Toxic effect of other metals, undetermined, initial encounter; K50.90 Crohn's disease, unspecified, without complications
CPT/HCPCS: 80053; 80061; 82306; 82525; 82607; 82728; 82746; 83036; 83540; 83550; 83735; 83970; 84100; 84134; 84255; 84425; 84443; 84590; 84630; 85027; 85610; 85730; 97803; 99211

== ENCOUNTER → 2022-05-10 | Outpatient (CLI) | payer BC ==
[2022-05-10 11:32] VITALS: BP 128/87; PULSE 85; TEMP 98.5
[2022-05-10 11:43] VITALS: BMI 42.6
--- NOTE | 2022-05-10 12:11 | P.BASOAP ---
Subjective Progress Note Date: 05/10/22 She lost 80 pounds in 6 months. No abdominal pain. Broke the right foot. Her blood pressure is good. She fell of her wedge shoe. She is due for labs. Will need aggressive nutritional correction. She is in a boot for her broken foot. She is not on pain medications. Current protein at 50 to 70 g Objective - Vital Signs Vital signs: Vital Signs Temp 98.5 F 05/10/22 11:27 Pulse 85 05/10/22 11:27 Resp BP 128/87 05/10/22 11:27 Pulse Ox FiO2 Intake & Output 05/09/22 05/10/22 05/10/22 18:59 06:59 18:59 Weight 119.748 kg Assessment/Plan Plan: Date: 05/10/22 Initial Weight: 153.314 kg Initial BMI: 53.7 Current Weight: 119.748 kg Current BMI: 42.6 Type of Surgery: Total Volume in Band: Previous Volume: Volume Removed: Volume Added: Band Size:
[2022-05-10 13:00] LABS: INR 0.9 (<1.2)
[2022-05-10 13:01] LABS: Partial Thromboplastin Time 26.5 sec (22.0-30.0); Prothrombin Time 10.3 sec (9.0-12.0)
[2022-05-10 18:17] LABS: HCT 39.7 % (37.2-46.3); MCH 28.6 pg (27.0-32.0); MCHC 32.7 g/dL (32.0-37.0); MCV 87.3 fL (80.0-97.0); Mean Platelet Volume 10.3 fL (9.5-12.2); NRBC Per 100 WBC 0 /100 WBCS (0.0-0.0); Platelet Count 169 X 10*3/uL (140-440); RBC 4.55 X 10*6/uL (4.10-5.20); RDW 13.9 % (11.5-14.5); WBC 7.06 X 10*3/uL (4.50-10.00)
[2022-05-10 19:58] LABS: Chol/HDL Ratio 3.67 Ratio; Prealbumin 18.9 mg/dL (18.0-42.0)
[2022-05-10 20:03] LABS: % Iron Saturation 17.69 (12.00-45.00); ALT 41 U/L (8-44); AST 22 U/L (13-35); African American GFR (CKD) 124.2 (60.0-200.0); Albumin 4.3 g/dL (3.8-4.9); Alkaline Phosphatase 125 U/L (41-126); BUN/Creat Ratio 27.39 Ratio (12.00-20.00); Blood Urea Nitrogen 19.8 mg/dL (9.0-27.0); Carbon Dioxide 23.5 mmol/L (20.0-27.5); Chloride 105 mmol/L (96-109); Globulin 2.3 g/dL (1.6-3.3); Glucose 100 mg/dL (70-110); Iron 54 ug/dL (50-170); Magnesium 2.1 mg/dL (1.5-2.4); Non-African American GFR(CKD) 107.2 (60.0-200.0); Phosphorus 3.7 mg/dL (2.4-5.1); Potassium 4.5 mmol/L (3.5-5.5); Sodium 140 mmol/L (135-145); Total Iron Binding Capacity 305 ug/dL (228-460); Total Protein 6.6 g/dL (6.2-8.2)
[2022-05-11 12:42] LABS: Zinc, Serum 51 ug/dL (60-130)
[2022-05-12 08:39] LABS: Vitamin A 44 ug/dL (38-106)
[2022-05-12 09:32] LABS: Vit B1(Thiamine) 39 ug/L (38-122)
== END | disposition home or self-care (01) ==
LOC: BARWHC3 10:52
PROVIDERS: ATTEND Surgery Plastic and Reconstructive Surgery
DX: E66.01 Morbid (severe) obesity due to excess calories (principal); D50.8 Other iron deficiency anemias; D50.9 Iron deficiency anemia, unspecified; K91.2 Postsurgical malabsorption, not elsewhere classified; E45 Retarded development following protein-calorie malnutrition; E46 Unspecified protein-calorie malnutrition; E55.9 Vitamin D deficiency, unspecified; K74.1 Hepatic sclerosis; N19 Unspecified kidney failure; T56.894A Toxic effect of other metals, undetermined, initial encounter
CPT/HCPCS: 80053; 80061; 82306; 82525; 82607; 82728; 82746; 83036; 83540; 83550; 83735; 83970; 84100; 84134; 84255; 84425; 84443; 84590; 84630; 85027; 85610; 85730; 97803; 99211

== ENCOUNTER → 2022-07-26 | Outpatient (CLI) | payer BC ==
[2022-07-26 13:41] VITALS: BP 148/89; PULSE 77; TEMP 98.5; BMI 42.4
--- NOTE | 2022-07-26 14:34 | P.BASOAP ---
Subjective Progress Note Date: 07/26/22 She is losing inches. She is excersing 6 days per week. Recommend Zinc supplement 50 mg help with hair. She is using Bariatric Advantage MVI. She is getting number. Recommend stop for 1 week. Recommend labs now. No abdominal pain. Objective - Vital Signs Vital signs: Vital Signs Temp 98.5 F 07/26/22 13:37 Pulse 77 07/26/22 13:37 Resp BP 148/89 07/26/22 13:37 Pulse Ox FiO2 Intake & Output 07/25/22 07/26/22 07/26/22 18:59 06:59 18:59 Weight 121.109 kg Assessment/Plan Plan: Date: 07/26/22 Initial Weight: 153.314 kg Initial BMI: 53.7 Current Weight: 121.109 kg Current BMI: 42.4 Type of Surgery: Total Volume in Band: Previous Volume: Volume Removed: Volume Added: Band Size:
[2022-07-26 16:55] LABS: Prothrombin Time 10.1 sec (9.0-12.0)
[2022-07-26 23:37] LABS: HCT 41.6 % (37.2-46.3); HGB 13.3 g/dL (12.0-15.0); MCH 28.4 pg (27.0-32.0); MCV 88.7 fL (80.0-97.0); Mean Platelet Volume 9.6 fL (9.5-12.2); NRBC Per 100 WBC 0 /100 WBCS (0.0-0.0); Platelet Count 129 X 10*3/uL (140-440); RBC 4.69 X 10*6/uL (4.10-5.20); RDW 13.2 % (11.5-14.5); WBC 6.42 X 10*3/uL (4.50-10.00)
[2022-07-27 00:03] LABS: ALT 34 U/L (8-44); AST 25 U/L (13-35); African American GFR (CKD) 116.5 (60.0-200.0); Albumin 4.4 g/dL (3.8-4.9); Albumin/Globulin Ratio 1.68 (1.60-3.17); Alkaline Phosphatase 120 U/L (41-126); BUN/Creat Ratio 20.58 Ratio (12.00-20.00); Blood Urea Nitrogen 15.6 mg/dL (9.0-27.0); Calcium 9.5 mg/dL (8.7-10.3); Carbon Dioxide 28.2 mmol/L (20.0-27.5); Chloride 104 mmol/L (96-109); Globulin 2.6 g/dL (1.6-3.3); Glucose 85 mg/dL (70-110); Iron 60 ug/dL (50-170); Magnesium 2.3 mg/dL (1.5-2.4); Non-African American GFR(CKD) 100.5 (60.0-200.0); Phosphorus 4.4 mg/dL (2.4-5.1); Potassium 4.2 mmol/L (3.5-5.5); Sodium 142 mmol/L (135-145); Total Iron Binding Capacity 314 ug/dL (228-460)
[2022-07-27 00:11] LABS: Chol/HDL Ratio 3.39 Ratio; LDL Cholesterol,Calculated 85.8 mg/dL (0.0-131.0); Prealbumin 21.2 mg/dL (18.0-42.0); VLDL Calculation 17.06 mg/dL (5.00-40.00)
[2022-07-28 11:59] LABS: Zinc, Serum 68 ug/dL (60-130)
== END ==
LOC: BARWHC3 13:21
PROVIDERS: ATTEND Surgery Plastic and Reconstructive Surgery
DX: E66.01 Morbid (severe) obesity due to excess calories (principal); Z68.41 Body mass index [BMI] 40.0-44.9, adult
CPT/HCPCS: 80053; 80061; 82306; 82525; 82607; 82728; 82746; 83036; 83540; 83550; 83735; 83970; 84100; 84134; 84255; 84425; 84443; 84590; 84630; 85027; 85610; 85730; 99211

== ENCOUNTER → 2022-12-13 | Outpatient (CLI) | payer OTHER ==
[2022-12-13 14:17] VITALS: TEMP 98.5; BMI 41.3
[2022-12-13 14:21] VITALS: BP 118/75; PULSE 80
--- NOTE | 2022-12-13 14:47 | P.BASOAP ---
Subjective Progress Note Date: 12/13/22 Her antidepressants has changed. She is losing weight. SHe reports reflux. May need upper esophagram. Recommend protonix BID to once daily. She cannot eat yogurt. Objective - Vital Signs Vital signs: Vital Signs Temp 98.5 F 12/13/22 14:09 Pulse 80 12/13/22 14:09 Resp BP 118/75 12/13/22 14:09 Pulse Ox FiO2 Intake & Output 12/12/22 12/13/22 12/13/22 18:59 06:59 18:59 Weight 118.07 kg Assessment/Plan Plan: Date: 12/13/22 Initial Weight: 153.314 kg Initial BMI: 53.7 Current Weight: 118.07 kg Current BMI: 41.3 Type of Surgery: Total Volume in Band: Previous Volume: Volume Removed: Volume Added: Band Size:
[2022-12-13 16:28] LABS: Partial Thromboplastin Time 26.4 sec (22.0-30.0); Prothrombin Time 10.4 sec (9.0-12.0)
[2022-12-13 21:34] LABS: % Iron Saturation 22.08 (12.00-45.00); ALT 33 U/L (8-44); AST 21 U/L (13-35); Albumin 4.4 g/dL (3.8-4.9); Albumin/Globulin Ratio 2.02 (1.60-3.17); Alkaline Phosphatase 137 U/L (41-126); BUN/Creat Ratio 16.57 Ratio (12.00-20.00); Blood Urea Nitrogen 16.3 mg/dL (9.0-27.0); Calcium 8.9 mg/dL (8.7-10.3); Carbon Dioxide 23.9 mmol/L (20.0-27.5); Chloride 106 mmol/L (96-109); Ferritin 91.6 ng/mL (10.0-291.0); Globulin 2.2 g/dL (1.6-3.3); Glucose 87 mg/dL (70-110); Iron 71 ug/dL (50-170); Magnesium 2.1 mg/dL (1.5-2.4); Non-African American GFR(CKD) 73.3 (60.0-200.0); Phosphorus 3.5 mg/dL (2.4-5.1); Sodium 142 mmol/L (135-145); Total Iron Binding Capacity 323 ug/dL (228-460); Total Protein 6.6 g/dL (6.2-8.2)
[2022-12-13 21:44] LABS: Chol/HDL Ratio 2.86 Ratio; LDL Cholesterol,Calculated 74.5 mg/dL (0.0-131.0); Prealbumin 20.1 mg/dL (18.0-42.0); VLDL Calculation 19.14 mg/dL (5.00-40.00)
[2022-12-13 21:46] LABS: HCT 40.4 % (37.2-46.3); HGB 12.8 g/dL (12.0-15.0); MCH 27.9 pg (27.0-32.0); MCHC 31.7 g/dL (32.0-37.0); Mean Platelet Volume 10.1 fL (9.5-12.2); NRBC Per 100 WBC 0 /100 WBCS (0.0-0.0); Platelet Count 124 X 10*3/uL (140-440); RBC 4.59 X 10*6/uL (4.10-5.20); RDW 12.6 % (11.5-14.5)
[2022-12-14 13:52] LABS: Zinc, Serum 50 ug/dL (60-130)
[2022-12-15 09:29] LABS: Vitamin A 55 ug/dL (38-106)
[2022-12-17 21:50] LABS: Selenium 122 mcg/L (63-160)
[2022-12-18 06:12] LABS: Vit B1(Thiamine) 36 ug/L (38-122)
== END | disposition home or self-care (01) ==
LOC: BARWHC3 14:01
PROVIDERS: ATTEND Surgery Plastic and Reconstructive Surgery
DX: E66.01 Morbid (severe) obesity due to excess calories (principal); D50.8 Other iron deficiency anemias; D69.6 Thrombocytopenia, unspecified; K91.2 Postsurgical malabsorption, not elsewhere classified; E44.0 Moderate protein-calorie malnutrition; K21.9 Gastro-esophageal reflux disease without esophagitis; E44.1 Mild protein-calorie malnutrition; E45 Retarded development following protein-calorie malnutrition; E46 Unspecified protein-calorie malnutrition; E55.9 Vitamin D deficiency, unspecified; K74.1 Hepatic sclerosis; K50.90 Crohn's disease, unspecified, without complications; N19 Unspecified kidney failure; T56.894A Toxic effect of other metals, undetermined, initial encounter; Z68.41 Body mass index [BMI] 40.0-44.9, adult; Z87.891 Personal history of nicotine dependence
CPT/HCPCS: 84255; 84134; 84425; 80061; 80053; 82607; 82728; 82525; 82746; 83540; 83550; 83735; 84100; 84443; 84590; 84630; 85027; 85610; 85730; 82306; 83970; 83036; 97803; G0463; 99211

== ENCOUNTER → 2023-07-02 | Outpatient (CLI) | payer OTHER ==
--- NOTE | 2023-07-02 09:25 | US ---
EXAMINATION TYPE: US gallbladder DATE OF EXAM: 07/02/2023 COMPARISON: US, CT 2021 CLINICAL INDICATION: Female, 38 years old with history of R10.12 LEFT UPPER QUADRANT PAIN,R10.13; Hx gastric bypass, hx gallstones. Patient is having left upper quadrant pain. TECHNIQUE: Multiple sonographic images of the right upper quadrant are obtained. FINDINGS: EXAM MEASUREMENTS: Liver Length: 15.4 cm Gallbladder Wall: 0.25 cm CBD: 0.35 cm Right Kidney: 11.3 x 5.9 x 5.0 cm IMMIGRATION CASE MANAGER NOTES: Limited due to patient body habitus and gas. Pancreas: Unable to visualize tail. Liver: No abnormalities seen. Gallbladder: Appears anechoic. Limited due to gas. Unable to visualize gallstones that were seen on prior exam on 03/04/2022. Evidence for sonographic York's sign: no CBD: Portions seen appear wnl Right Kidney: No hydronephrosis or masses seen IMPRESSION: No gallstones definitively visualized on today's exam. Which could be due to shifting gallstones into the gallbladder neck.
== END | disposition home or self-care (01) ==
LOC: RADUSWWP 07:56
PROVIDERS: ATTEND Surgery Plastic and Reconstructive Surgery
DX: R10.12 Left upper quadrant pain (principal); R10.13 Epigastric pain
CPT/HCPCS: 76705

== ENCOUNTER → 2023-07-03 | Outpatient (CLI) | payer OTHER ==
--- NOTE | 2023-07-03 15:53 | NM ---
EXAMINATION TYPE: NM hepatobiliary w EF DATE OF EXAM: 07/03/2023 COMPARISON: NONE CLINICAL INDICATION: Female, 38 years old with history of R10.12 LEFT UPPER QUADRANT PAIN,R12.13; TECHNIQUE: After the intravenous administration of 5.1 mCi Tc 99m Mebrofenin hepatobiliary scintigrap hy is performed. Immediate images post injection. FINDINGS: There is satisfactory initial accumulation of tracer by the liver. The gallbladder is visualized wit hin 8 minutes. The small bowel activity is noted within 18 minutes. At one hour 8 ounces of oral en sure plus is given to mimic CCK and gallbladder ejection fraction is calculated at 68 %, in the rosa l range. Therefore there is no scintigraphic evidence of cystic or common bile duct obstruction to s uggest acute cholecystitis or gallbladder dyskinesia. IMPRESSION: Exam is within normal limits.
== END | disposition home or self-care (01) ==
LOC: RADNMMAIN 12:59
PROVIDERS: ATTEND Surgery Plastic and Reconstructive Surgery
DX: R10.12 Left upper quadrant pain (principal); R10.13 Epigastric pain
CPT/HCPCS: 78226; A9537